=== PATIENT | male | born 1960 | race Asian ===

== ENCOUNTER 2019-06-03 00:59 | Emergency (ER) | payer OTHER ==
[~2019-06-03] VITALS: Ht 177.8 cm; Wt 81.6 kg
[2019-06-03] MEDS ORDERED: METOPROLOL SUCC25 MG ORAL (01:03)
[2019-06-03] MEDS ORDERED: ISONIAZID100 MG PO (01:03)
[2019-06-03] MEDS ORDERED: BACLOFEN10 MG ORAL (01:03)
--- NOTE | 2019-06-03 01:04 | Emergency Room Report ---
History of Present Illness General Chief Complaint: Abdominal Pain Source: Patient, EMS Present Illness HPI 58-year-old male possible history of hypertension presents with left lower abdominal pain started 3 hours prior to arrival, no nausea no vomiting, pain is described as sharp constant unknown aggravating or alleviating factors severity is moderate, no chest pain no shortness of breath no dysuria no diarrhea patient presents for evaluation Allergies: Coded Allergies: No Known Allergies (Unverified , 06/03/19) Patient History Past Medical History: see triage record Reviewed Nursing Documentation: PMH: Agreed; PSxH: Agreed Nursing Documentation-PMH Past Medical History: No History, Except For Hx Hypertension: Yes Review of Systems All Other Systems: negative except mentioned in HPI Physical Exam Vital Signs Date Time Temp Pulse Resp B/P (MAP) Pulse Ox O2 Delivery O2 Flow Rate FiO2 06/03/19 00:59 97.9 68 14 162/100 (120) 96 Room Air Sp02 EP Interpretation: reviewed, normal General Appearance: well appearing, no apparent distress, alert Head: normocephalic, atraumatic Eyes: bilateral eye PERRL, bilateral eye EOMI ENT: uvula midline, moist mucus membranes Neck: supple, thyroid normal, supple/symm/no masses Respiratory: lungs clear, no respiratory distress, no retraction, no accessory muscle use Cardiovascular #1: normal peripheral pulses, regular rate, rhythm, no edema, no gallop, no murmur Gastrointestinal: no guarding, tenderness - generalized tenderness Musculoskeletal: normal inspection Neurologic: alert, oriented x3 Psychiatric: mood/affect normal Skin: no rash, warm/dry Medical Decision Making Diagnostic Impression: Primary Impression: AAA (abdominal aortic aneurysm) Qualified Codes: I71.4 - Abdominal aortic aneurysm, without rupture Additional Impressions: Ureterolithiasis UTI (urinary tract infection) Qualified Codes: N30.00 - Acute cystitis without hematuria ER Course 58-year-old male presents with abdominal pain, concerning for appendicitis versus diverticulitis versus nephrolithiasis versus AAA Patient is a former smoker, patient is given morphine IV fluids, Labs unremarkable, CT scan shows a right ureteral stone for millimeters, patient instantly found to have a AAA 5 cm Spoke with radiologist Will transfer patient for possible vascular intervention given his increased risk of rupture Patient accepted by Dr. Jb Guaman 4:15AM Patient also found to have UTI. Will provide abx in setting of kidney stone. Dr[facility] [place] [facility] Laboratory Tests Test 06/03/19 01:00 06/03/19 04:00 White Blood Count 4.7 K/UL (4.8-10.8) L Red Blood Count 4.79 M/UL (4.70-6.10) Hemoglobin 14.0 G/DL (14.2-18.0) L Hematocrit 42.7 % (42.0-52.0) Mean Corpuscular Volume 89 FL (80-99) Mean Corpuscular Hemoglobin 29.3 PG (27.0-31.0) Mean Corpuscular Hemoglobin Concent 32.8 G/DL (32.0-36.0) Red Cell Distribution Width 12.9 % (11.6-14.8) Platelet Count 169 K/UL (150-450) Mean Platelet Volume 5.1 FL (6.5-10.1) L Neutrophils (%) (Auto) 48.8 % (45.0-75.0) Lymphocytes (%) (Auto) 38.3 % (20.0-45.0) Monocytes (%) (Auto) 9.4 % (1.0-10.0) Eosinophils (%) (Auto) 2.2 % (0.0-3.0) Basophils (%) (Auto) 1.3 % (0.0-2.0) Prothrombin Time 10.7 SEC (9.30-11.50) Prothrombin Time INR 1.0 (0.9-1.1) PTT 28 SEC (23-33) Sodium Level 146 MMOL/L (136-145) H Potassium Level 4.1 MMOL/L (3.5-5.1) Chloride Level 111 MMOL/L (98-107) H Carbon Dioxide Level 26 MMOL/L (21-32) Anion Gap 9 mmol/L (5-15) Blood Urea Nitrogen 15 mg/dL (7-18) Creatinine 1.0 MG/DL (0.55-1.30) Estimate Glomerular Filtration Rate > 60 mL/min (>60) Glucose Level 100 MG/DL (74-106) Calcium Level 8.9 MG/DL (8.5-10.1) Total Bilirubin 0.5 MG/DL (0.2-1.0) Aspartate Amino Transferase (AST) 15 U/L (15-37) Alanine Aminotransferase (ALT) 17 U/L (12-78) Alkaline Phosphatase 78 U/L (46-116) Troponin I 0.000 ng/mL (0.000-0.056) Total Protein 7.3 G/DL (6.4-8.2) Albumin 3.7 G/DL (3.4-5.0) Globulin 3.6 g/dL Albumin/Globulin Ratio 1.0 (1.0-2.7) Lipase 184 U/L (73-393) Urine Color Yellow Urine Appearance Slightly cloudy Urine pH 5 (4.5-8.0) Urine Specific [place] 1.020 (1.005-1.035) Urine Protein 2+ (NEGATIVE) H Urine Glucose (UA) Negative (NEGATIVE) Urine Ketones Negative (NEGATIVE) Urine Blood 5+ (NEGATIVE) H Urine Nitrite Negative (NEGATIVE) Urine Bilirubin Negative (NEGATIVE) Urine Urobilinogen 1 MG/DL (0.0-1.0) H Urine Leukocyte Esterase 3+ (NEGATIVE) H Urine RBC Tntc /HPF (0 - 0) H Urine WBC Tntc /HPF (0 - 0) H Urine Squamous Epithelial Cells None /LPF (NONE/OCC) Urine Bacteria Moderate /HPF (NONE) H EKG Diagnostic Results EKG Time: 01:14 EP Interpretation: NSR, rate 68, QTc 47, no acute ST elevations, normal axis Rhythm Strip Diag. Results Rhythm Strip Time: 03:09 EP Interpretation: yes Rate: 65 Rhythm: NSR, no PVC's, no ectopy Chest X-Ray Diagnostic Results Chest X-Ray Diagnostic Results : Chest X-Ray Ordered: Yes # of Views/Limited/Complete: 1 View Indication: Other - Abdominal pain EP Interpretation: Yes Interpretation: no consolidation, no effusion, no pneumothorax, no acute cardiopulmonary disease Impression: No acute disease Electronically Signed by: Cresencio Malin MD CT/MRI/US Diagnostic Results CT/MRI/US Diagnostic Results : Impression Preliminary Findings Only See Final Report For Complete Findings CT ABDOMEN & PELVIS With Contrast: Lower lungs: Mild cardiomegaly. Liver: Unremarkable. Gallbladder: Unremarkable. Spleen, pancreas, and adrenal glands: No acute findings. Kidneys: Left hydroureteronephrosis secondary to a 4 mm stone in the distal ureter. Right kidney is unremarkable. Bowel: No bowel obstruction. Mild hiatal hernia. Appendix: No convincing appendicitis. Bladder: Mild wall thickening, correlate with cystitis versus underdistention. Pelvic organs: Unremarkable. Vessels: 4.9 cm abdominal aortic aneurysm with 60% circumferential mural thrombus. Bones: No acute fracture. Radiologist: Vivi Chappell MD Study ready at 03:22 and initial results transmitted at 03:34 Last Vital Signs Date Time Temp Pulse Resp B/P (MAP) Pulse Ox O2 Delivery O2 Flow Rate FiO2 06/03/19 00:59 97.9 68 14 162/100 (120) 96 Room Air Disposition: XFER SHT-TRM HOSP - [facility] Condition: Serious Cresencio Malin MD Jun 03, 2019 01:04
[2019-06-03] MEDS ORDERED: Morphine Sulfate 4mg/ml Inj (IV USE ONLY) IVP ONE (01:15)
[2019-06-03] MEDS ORDERED: Ketorolac 30mg Inj IV ONE (01:15)
[2019-06-03] MEDS ORDERED: Isovue-300 100ml vial INJ PRN (01:15)
--- NOTE | 2019-06-03 01:15 | NUR ---
ED Nurse Note: Recieved pt from home, awake, alert and oriented x 4, here with c/o abd pain at 06/02, pt ahs hx of abd surgery and thinks is having complications, denies cp, sob, or any toher complaints, pt assisted to gowning and cardiac monitoring, spouse at bedside, carlos t 07/02, will resume care as ordered and continue to closely monitor.
[2019-06-03 01:27] LABS: BASOPHILS % (AUTO) 1.3 % (0.0-2.0); EOSINOPHILS % (AUTO) 2.2 % (0.0-3.0); HEMATOCRIT 42.7 % (42.0-52.0); LYMPHOCYTES % (AUTO) 38.3 % (20.0-45.0); MEAN CORPUSCULAR VOLUME 89 FL (80-99); MONOCYTES % (AUTO) 9.4 % (1.0-10.0); NEUTROPHILS % (AUTO) 48.8 % (45.0-75.0); PLATELET COUNT 169 K/UL (150-450); RED BLOOD COUNT 4.79 M/UL (4.70-6.10); RED CELL DISTRIBUTION WIDTH 12.9 % (11.6-14.8); WHITE BLOOD COUNT 4.7 K/UL (4.8-10.8)
[2019-06-03 01:38] LABS: ANION GAP 9 mmol/L (5-15); BLOOD UREA NITROGEN 15 mg/dL (7-18); CALCIUM 8.9 MG/DL (8.5-10.1); CARBON DIOXIDE 26 MMOL/L (21-32); CHLORIDE 111 MMOL/L (98-107); POTASSIUM 4.1 MMOL/L (3.5-5.1); SODIUM 146 MMOL/L (136-145)
[2019-06-03 01:43] LABS: ALANINE AMINOTRANSFERASE 17 U/L (12-78); ALBUMIN 3.7 G/DL (3.4-5.0); ALKALINE PHOSPHATASE 78 U/L (46-116); ASPARTATE AMINO TRANSFERASE 15 U/L (15-37); BILIRUBIN,TOTAL 0.5 MG/DL (0.2-1.0)
[2019-06-03 02:45] VITALS: BP 129/77
--- NOTE | 2019-06-03 03:30 | NUR ---
ED Nurse Note: Pt endorsed from Mattie, pt able to give uriner sample, sent to lab. Pt now resting in bed with eyes closed, no signs of distress. VSS. Pt denies pain at this time, will continue to monitor
--- NOTE | 2019-06-03 03:35 | Diagnostic Imaging Report ---
Clinical Indication: Right upper quadrant pain for 2 days Technique: No oral contrast utilized, per emergency room physician request IV administration nonionic contrast. Venous phase spiral acquisition obtained through the abdomen and pelvis. Multiplanar reconstructions were generated. Total dose length product 946.66 mGycm. CTDIvol(s) 16.82 mGy. Dose reduction achieved using automated exposure control Comparison: none Findings: There is a 5 x 4 mm calculus in the distal left ureter. There is mild ectasia of the left ureter, moderate left hydronephrosis, periureteral fat stranding, perinephric fat stranding as well as don perinephric fluid. There is a cyst within the left kidney which contains some calcification. There is also a right renal cyst. No right renal or ureteral calculi, hydronephrosis, or hydroureter demonstrated. The prostate is somewhat enlarged. The bladder demonstrates wall thickening. There is also some focal polypoid appearing protrusion into the bladder lumen posteriorly which measures approximately 12 mm in diameter. There is a fusiform infrarenal abdominal aortic aneurysm. This measures 5 cm transverse by 5.2 cm AP by 8 cm in length. It demonstrates considerable mural thrombus. There is no evidence of leakage or rupture. There is a long infrarenal neck of at least 5 cm. The appendix is normal. There is no evidence of colonic diverticulosis or diverticulitis. No small bowel distention. No free or loculated intraperitoneal gas or fluid. Distal esophagus, stomach, duodenum are unremarkable. The liver demonstrates multiple subcentimeter low-attenuation lesions which are too small to characterize. The gallbladder demonstrates a tiny calcification within the fundus. The bile ducts, pancreas, spleen are unremarkable. There is a 16 mm mass in the left adrenal. There is a 12 mm mass in the right adrenal. Both of these demonstrate indeterminate soft tissue attenuation. The included lung bases demonstrate a 3 mm nodule in the right middle lobe, image 10 series 7. There are posterior dependent atelectatic changes bilaterally. There may be some small air cysts in the left lower lobe. There is a 5 mm nodule in the posterior medial left lower lobe. Granulomatous calcified lymph nodes are seen in the left pulmonary hilum. Coronary artery calcifications are noted. The bones demonstrate degenerative spondylosis changes. Impression: Positive for 5 x 4 mm distal left ureteral calculus, resulting in ectasia of the left ureter, moderate left hydronephrosis, periureteral fat stranding and perinephric fluid 5 x 5.2 x 8 cm infrarenal abdominal aortic aneurysm. No evidence of leakage or rupture The above findings are in agreement with the [facility] preliminary report Apparent polypoid protrusion into the posterior bladder lumen. This may represent a bladder mass or could represent blood related to the above Bilateral small pulmonary nodules, as described. Recommend follow-up CT imaging in 6-12 months if there is significant smoking history or other risk factors for lung carcinoma Cholelithiasis Bilateral adrenal nodules. Recommend comparison with any prior imaging that may be available. Consider 12 month follow-up adrenal CT or chemical shift MRI for further evaluation The above findings were not described on the preliminary report, were reported to Dr. Rosenbaum in the emergency room at the time of interpretation. [facility] was also notified via their website Incidental findings: Left lower lobe air cyst Evidence of old granulomatous disease in the left pulmonary hilum Incidental finding bilateral renal cysts Prostatomegaly Subcentimeter low-attenuation liver lesions, too small to characterize, most likely benign simple cysts or bile hamartomas. No further follow-up necessary The CT scanner at [facility] is accredited by the [employer] and the scans are performed using protocols designed to limit radiation exposure to as low as reasonably achievable to attain images of sufficient resolution adequate for diagnostic evaluation.
--- NOTE | 2019-06-03 03:39 | NUR ---
Pts info: [phone]
[2019-06-03 04:09] LABS: APPEARANCE,URINE SLIGHTLY CLOUDY; BILIRUBIN, URINE NEGATIVE (NEGATIVE); GLUCOSE, URINE (UA) NEGATIVE (NEGATIVE); KETONES,URINE NEGATIVE (NEGATIVE); LEUKOCYTE ESTERASE ,URINE 3+ (NEGATIVE); NITRITE,URINE NEGATIVE (NEGATIVE); PH,URINE 5 (4.5-8.0); PROTEIN,URINE 2+ (NEGATIVE); UROBILINOGEN,URINE 1 MG/DL (0.0-1.0)
--- NOTE | 2019-06-03 04:30 | NUR ---
Ppatient has been accepted at [facility] waiting for a bed assignment
[2019-06-03 04:32] LABS: COLOR,URINE YELLOW
[2019-06-03] MEDS ORDERED: cefTRIAXone 1 GM in NS 55 ML IVPB ONE (05:00)
[2019-06-03 07:20] VITALS: BP 152/90
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
--- NOTE | 2019-06-03 07:23 | NUR ---
HAND-OFF: Report given to Arun.
[2019-06-03 09:00] VITALS: BP 146/85
--- NOTE | 2019-06-03 09:00 | NUR ---
ED Nurse Note: pt lying in bed comfortably. no pain at this time. able to use urinal.
--- NOTE | 2019-06-03 10:58 | NUR ---
ED Nurse Note: NOHEMY Braswell at [facility]
--- NOTE | 2019-06-03 11:00 | NUR ---
ED Nurse Note: family at the bed side. will ride with pt.
[2019-06-03 11:03] VITALS: BP 104/83
--- NOTE | 2019-06-03 11:04 | NUR ---
ED Nurse Note: transferred by [facility] unit # [id number] to [facility].
--- NOTE | 2019-06-03 11:18 | Emergency Room Report ---
Physical Exam Vital Signs Date Time Temp Pulse Resp B/P (MAP) Pulse Ox O2 Delivery O2 Flow Rate FiO2 06/03/19 00:59 97.9 68 14 162/100 (120) 96 Room Air Medical Decision Making Diagnostic Impression: Primary Impression: AAA (abdominal aortic aneurysm) Additional Impressions: Ureterolithiasis UTI (urinary tract infection) Renal cyst Lung nodule Cholelithiasis ER Course Alerted by radiologist of Additional findings on CT scan from last night including left lower lobe cyst versus nodule, granulomatous disease in the left pulmonary hilum, bilateral renal cysts and cholelithiasis. I discussed these findings with the patient and included an updated report in the patient's transfer paperwork to [facility]. He is instructed to follow-up for these as an outpatient and to discuss with his new team over at [facility]. Patient remained stable for transport. Last Vital Signs Date Time Temp Pulse Resp B/P (MAP) Pulse Ox O2 Delivery O2 Flow Rate FiO2 06/03/19 11:03 62 21 104/83 98 Room Air 06/03/19 07:20 97.9 [facility] Condition: Serious Referrals: NON PHYSICIAN (PCP) Keaton Rosenbaum MD Jun 03, 2019 11:18
--- NOTE | 2019-06-03 11:29 | Diagnostic Imaging Report ---
Indication: Shortness of breath Technique: One view of the chest Comparison: none Findings: Lungs and pleural spaces are clear. The heart is upper limits of normal in size. The aorta is tortuous and ectatic and calcified. Impression: No acute process
--- NOTE | 2019-06-03 18:45 | Cardiology Report ---
APPROVED REPORT EKG Measurement Heart [id number] Normal sinus rhythm Normal ECG
== END 2019-06-03 11:06 | disposition short-term general hospital (02) ==
LOC: EDBD 00:59 → EMR 01:20
DX: I71.4 Abdominal aortic aneurysm, without rupture (principal); N30.00 Acute cystitis without hematuria; N20.1 Calculus of ureter; I10 Essential (primary) hypertension; N28.1 Cyst of kidney, acquired; R91.1 Solitary pulmonary nodule; K80.20 Calculus of gallbladder without cholecystitis without obstruction
CPT/HCPCS: 36415; 71045; 74177; 80053; 81003; 83690; 84484; 85025; 85610; 85730; 86850; 86900; 86901; 87086; 87181; 93005; 96361; 96365; 96375; J0696; J1885; J2270; J2405; Q9967; S0028; Z7502; 99284

== ENCOUNTER 2019-12-04 15:16 | Inpatient (IN) | payer OTHER ==
[~2019-12-04] VITALS: Ht 172.7 cm; Wt 72.6 kg
[~2019-12-04 15:16] MED LIST: BACLOFEN10 MG ORAL; ISONIAZID100 MG PO; METOPROLOL SUCC25 MG ORAL
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
[2019-12-04 15:30] VITALS: BP 142/89
[2019-12-04] MEDS ORDERED: Omnipaque-300 100ml vial INJ PRN (15:30)
[2019-12-04] MEDS ORDERED: Morphine Sulfate 4mg/ml Inj (IV USE ONLY) IVP ONE ×2 (15:30→18:15)
--- NOTE | 2019-12-04 15:51 | NUR ---
ED Nurse Note: blood and urine sent to lab
[2019-12-04 16:09] LABS: APPEARANCE,URINE CLOUDY; BILIRUBIN, URINE NEGATIVE (NEGATIVE); COLOR,URINE PALE YELLOW; GLUCOSE, URINE (UA) NEGATIVE (NEGATIVE); KETONES,URINE NEGATIVE (NEGATIVE); LEUKOCYTE ESTERASE ,URINE 3+ (NEGATIVE); NITRITE,URINE POSITIVE (NEGATIVE); PH,URINE 6 (4.5-8.0); PROTEIN,URINE 3+ (NEGATIVE); UROBILINOGEN,URINE NORMAL MG/DL (0.0-1.0)
[2019-12-04 16:14] LABS: HEMATOCRIT 44.1 % (42.0-52.0); HEMOGLOBIN 14.4 G/DL (14.2-18.0); MEAN CORPUSCULAR VOLUME 89 FL (80-99); PLATELET COUNT 133 K/UL (150-450); RED BLOOD COUNT 4.96 M/UL (4.70-6.10); RED CELL DISTRIBUTION WIDTH 14.3 % (11.6-14.8); WHITE BLOOD COUNT 9.9 K/UL (4.8-10.8)
[2019-12-04 16:15] LABS: BASOPHILS % (AUTO) 0.5 % (0.0-2.0); EOSINOPHILS % (AUTO) 0.2 % (0.0-3.0); MONOCYTES % (AUTO) 3.2 % (1.0-10.0); NEUTROPHILS % (AUTO) 87.9 % (45.0-75.0)
[2019-12-04 16:16] LABS: ANION GAP 9 mmol/L (5-15); BLOOD UREA NITROGEN 21 mg/dL (7-18); CALCIUM 9.6 MG/DL (8.5-10.1); CARBON DIOXIDE 26 MMOL/L (21-32); CHLORIDE 106 MMOL/L (98-107); CREATININE 0.9 MG/DL (0.55-1.30); POTASSIUM 4.2 MMOL/L (3.5-5.1); SODIUM 141 MMOL/L (136-145)
[2019-12-04 16:18] LABS: INR 0.9 (0.9-1.1)
[2019-12-04 16:20] LABS: ALANINE AMINOTRANSFERASE 23 U/L (12-78); ALBUMIN 3.6 G/DL (3.4-5.0); ALBUMIN/GLOBULIN RATIO 0.9 (1.0-2.7); ALKALINE PHOSPHATASE 91 U/L (46-116); ASPARTATE AMINO TRANSFERASE 20 U/L (15-37); BILIRUBIN,TOTAL 0.4 MG/DL (0.2-1.0)
--- NOTE | 2019-12-04 16:23 | Diagnostic Imaging Report ---
Indication: Dyspnea Comparison: 06/03/2019 A single view chest radiograph was obtained. Findings: No definite infiltrate or pulmonary vascular congestion identified. The heart is normal in size. The aorta is mildly enlarged consistent with atherosclerotic vascular disease. The bones are osteopenic. There are thoracic vertebral enthesophytes at multiple levels. Impression: No acute disease
[2019-12-04] MEDS ORDERED: cefTRIAXone 1 GM in NS 55 ML IVPB ONE (16:45)
[2019-12-04] MEDS ORDERED: Sodium Chloride 2,200 ML IVLG ONE (16:45)
--- NOTE | 2019-12-04 17:11 | NUR ---
ED Nurse Note: Pt in radiology
--- NOTE | 2019-12-04 17:25 | NUR ---
ED Nurse Note: reflex lactic drawn and sent to lab
[2019-12-04] MEDS ORDERED: DOCUSATE SODIU100 MG ORAL (17:46)
[2019-12-04] MEDS ORDERED: LOSARTAN POTASS25 MG ORAL (17:46)
[2019-12-04] MEDS ORDERED: FLOMAX0.4 MG ORAL (17:46)
[2019-12-04] MEDS ORDERED: CYMBALTA30 MG ORAL (17:46)
[2019-12-04] MEDS ORDERED: METOPROLOL TART25 MG ORAL (17:46)
[2019-12-04 18:00] VITALS: BP 148/92
--- NOTE | 2019-12-04 18:08 | Diagnostic Imaging Report ---
EXAM: CT Abdomen and Pelvis With Intravenous Contrast CLINICAL HISTORY: ABD PAIN TECHNIQUE: Axial computed tomography images of the abdomen and pelvis with intravenous contrast. CTDI is 6.1 mGy and DLP is 355.3 mGy-cm. One or more of the following dose reduction techniques were used: automated exposure control, adjustment of the mA and/or kV according to patient size, use of iterative reconstruction technique. COMPARISON: CT abdomen/pelvis on 06/03/2019 FINDINGS: Lung bases: Mild dependent atelectasis bilaterally. Mediastinum: Small hiatal hernia. ABDOMEN: Liver: Unremarkable. No mass. Gallbladder and bile ducts: Unremarkable. No calcified stones. No ductal dilation. Pancreas: Unremarkable. No mass. No ductal dilation. Spleen: Unremarkable. No splenomegaly. Adrenals: Similar nonspecific bilateral adrenal nodules measuring 1.8 cm on the left and 1.5 cm on the right. Kidneys and ureters: Moderate to severe left hydronephrosis. Left ureteral stent in place. No obstructing stone identified. Right renal cyst. Nonspecific hypodense lesions in the left kidney, one of which with mild associated calcifications. Stomach and bowel: Unremarkable. No obstruction. No mucosal thickening. PELVIS: Appendix: Normal appendix. Bladder: Distended bladder. Mild nonspecific bladder wall thickening along the right aspect of the bladder. Reproductive: Prominent calcifications in the prostate which is enlarged. ABDOMEN and PELVIS: Intraperitoneal space: Unremarkable. No free air. No significant fluid collection. Bones/joints: Degenerative changes of the spine. No acute fracture. No dislocation. Soft tissues: Small fat-containing umbilical hernia. Vasculature: Infrarenal abdominal aortic aneurysm, measuring approximately 5.1 cm in diameter. No aortic dissection. Atherosclerotic changes of the vasculature. Lymph nodes: Unremarkable. No enlarged lymph nodes. IMPRESSION: 1. Similar nonspecific bilateral adrenal nodules measuring 1.8 cm on the left and 1.5 cm on the right. 2. Infrarenal abdominal aortic aneurysm, measuring approximately 5.1 cm in diameter. No aortic dissection. 3. Moderate to severe left hydronephrosis. Left ureteral stent in place. No obstructing stone identified. 4. Distended bladder. Mild nonspecific bladder wall thickening along the right aspect of the bladder.
--- NOTE | 2019-12-04 18:21 | NUR ---
ED Nurse Note: Pt having a lot of pain and complaining of not being able to void. Heart rate increased to 140 bpm. Bladder scan shows 111 ml. ED MD aware and assessed patient. Morphine ordered and given.
[2019-12-04] MEDS ORDERED: Vancomycin 1 GM in NS 275 ML IVPB ONE (18:30)
[2019-12-04] MEDS ORDERED: Gentamicin 120mg/100ml NS INJ 100 ML IVPB ONE (18:45)
--- NOTE | 2019-12-04 18:49 | NUR ---
ED Nurse Note: Dale inserted and pt feeling relief. HR now 125
--- NOTE | 2019-12-04 19:02 | NUR ---
HAND-OFF: Report given to NOHEMY Marks. Pt in stable condition; plan of care endorsed.
[2019-12-04 19:03] VITALS: BP 118/75
--- NOTE | 2019-12-04 19:03 | NUR ---
ED Nurse Note: Received report from Griselda SLATER. Pt alert and orienetd, verbally responsive. Not in any distress. Pt has FC 18F, patent and draining well. Will cont to monitor.
--- NOTE | 2019-12-04 21:03 | NUR ---
ED Nurse Note: Pt seen sleeping in bed. Not in any distress. VSS. Will cont to monitor.
--- NOTE | 2019-12-04 21:30 | NUR ---
ED Nurse Note: Report given to Dennys SLATER.
[2019-12-04 21:40] VITALS: BP 101/60
--- NOTE | 2019-12-04 21:40 | NUR ---
TRANSFER TO FLOOR: Patient transferred to SDU. Report given to Dennys SLATER. Pt alert and oriented, verbally responsive. Not in any distress. No SOB. Sinus rhythm. IV line on left and right AC 20g patent and intact. No skin issues. Med recon done. All belongings sent with the patient. Family member aware of the transfer.
--- NOTE | 2019-12-04 21:57 | Infectious Diseases Prog Note ---
Assessment/Plan Assessment/Plan Full consult dictated: A) 1) uti/pyelonephritis 2) sepsis, fevers 3) allergies - nkda 4) pmh noted P) 1) zosyn and vancomycin 2) check cultures, labs and chest x-ray 3) CT noted 4) thank you Subjective Allergies: Coded Allergies: No Known Allergies (Unverified , 06/03/19) Objective Vital Signs Last 24 Hour Vital Signs Date Time Temp Pulse Resp B/P (MAP) Pulse Ox O2 Delivery O2 Flow Rate FiO2 12/04/19 19:03 101.0 101 19 118/75 97 Room Air 12/04/19 18:59 101.0 12/04/19 18:00 101.0 140 20 148/92 99 Room Air 12/04/19 15:30 135 20 Room Air 12/04/19 15:30 102.6 135 20 142/89 99 Room Air 12/04/19 15:21 102.6 133 20 145/82 (103) 99 Room Air Height (Feet): 5 Height (Inches): 8.00 Weight (Pounds): 160 Laboratory Tests Test 12/04/19 15:40 12/04/19 17:25 White Blood Count 9.9 K/UL (4.8-10.8) Red Blood Count 4.96 M/UL (4.70-6.10) Hemoglobin 14.4 G/DL (14.2-18.0) Hematocrit 44.1 % (42.0-52.0) Mean Corpuscular Volume 89 FL (80-99) Mean Corpuscular Hemoglobin 29.0 PG (27.0-31.0) Mean Corpuscular Hemoglobin Concent 32.6 G/DL (32.0-36.0) Red Cell Distribution Width 14.3 % (11.6-14.8) Platelet Count 133 K/UL (150-450) L Mean Platelet Volume 5.6 FL (6.5-10.1) L Neutrophils (%) (Auto) 87.9 % (45.0-75.0) H Lymphocytes (%) (Auto) 8.0 % (20.0-45.0) L Monocytes (%) (Auto) 3.2 % (1.0-10.0) Eosinophils (%) (Auto) 0.2 % (0.0-3.0) Basophils (%) (Auto) 0.5 % (0.0-2.0) Prothrombin Time 9.8 SEC (9.30-11.50) Prothromb Time International Ratio 0.9 (0.9-1.1) Activated Partial Thromboplast Time 29 SEC (23-33) Urine Color Pale yellow Urine Appearance Cloudy Urine pH 6 (4.5-8.0) Urine Specific [place] 1.010 (1.005-1.035) Urine Protein 3+ (NEGATIVE) H Urine Glucose (UA) Negative (NEGATIVE) Urine Ketones Negative (NEGATIVE) Urine Blood 5+ (NEGATIVE) H Urine Nitrite Positive (NEGATIVE) H Urine Bilirubin Negative (NEGATIVE) Urine Urobilinogen Normal MG/DL (0.0-1.0) Urine Leukocyte Esterase 3+ (NEGATIVE) H Urine RBC Tntc /HPF (0 - 0) H Urine WBC 60-80 /HPF (0 - 0) H Urine Squamous Epithelial Cells Few /LPF (NONE/OCC) Urine Bacteria Many /HPF (NONE) H Sodium Level 141 MMOL/L (136-145) Potassium Level 4.2 MMOL/L (3.5-5.1) Chloride Level 106 MMOL/L (98-107) Carbon Dioxide Level 26 MMOL/L (21-32) Anion Gap 9 mmol/L (5-15) Blood Urea Nitrogen 21 mg/dL (7-18) H Creatinine 0.9 MG/DL (0.55-1.30) Estimat Glomerular Filtration Rate > 60 mL/min (>60) Glucose Level 128 MG/DL (74-106) H Lactic Acid Level 2.30 mmol/L (0.4-2.0) H 1.10 mmol/L (0.66-2.22) Calcium Level 9.6 MG/DL (8.5-10.1) Magnesium Level 1.9 MG/DL (1.8-2.4) Total Bilirubin 0.4 MG/DL (0.2-1.0) Aspartate Amino Transf (AST/SGOT) 20 U/L (15-37) Alanine Aminotransferase (ALT/SGPT) 23 U/L (12-78) Alkaline Phosphatase 91 U/L (46-116) Total Protein 7.5 G/DL (6.4-8.2) Albumin 3.6 G/DL (3.4-5.0) Globulin 3.9 g/dL Albumin/Globulin Ratio 0.9 (1.0-2.7) L Lipase 302 U/L (73-393) Current Medications Medications (Trade) Dose Ordered Sig/Aiden Route PRN Reason Start Time Stop Time Status Last Admin Dose Admin Barium Sulfate (Readi-Cat 2) 450 ml NOW PRN ORAL Radiology Procedure 12/04/19 15:30 12/06/19 15:18 Iohexol (OMNIPAQUE-300 100ml) 100 ml NOW PRN INJ Radiology Procedure 12/04/19 15:30 12/06/19 15:18 Sodium Chloride 1,000 ml @ 300 mls/hr Q3H20M IV 12/04/19 15:30 01/03/20 15:29 12/04/19 18:29 Babatunde Kyle MD Dec 04, 2019 21:57
--- NOTE | 2019-12-04 22:00 | NUR ---
NURSE NOTES: Received report from Lorraine SLATER, pt. brought up from ER, pt. in bed awake, A/O x's 4- speaks Czech/ Mongolian. assistant food service director placed, VS done- full body assessment done- abdominal area appears to be distended- skin dry/ intact. pt. appears to be sating well on room air at 96%- no distress noted, pt. denies pain. Call light within easy reach, bed alarm on, side rails up x's3 and safety brakes engaged. Pt. states he does not ambulate but can turn side to side in bed. pt. oriented to room and pt. teaching done. pt. has Dale intact and patent- draining clear yellow urine. pt. has Right and Left AC both IVs intact and patent, safety measures continued, will continue with plan of care.
[2019-12-04] MEDS ORDERED: Hydromorphone 0.5mg/0.5ml inj IVP PRN (22:30)
[2019-12-04] MEDS ORDERED: Docusate 100mg cap ORAL PRN (22:30)
--- NOTE | 2019-12-04 22:30 | NUR ---
NURSE NOTES: DR. Munguia- calling to give admission orders- orders read back to doctor- per doctor from home reconcile medications to continue all medications except Losartan potassium and Metoprolol Tartrate- will carry out orders.
--- NOTE | 2019-12-04 23:30 | Consultation ---
DATE OF CONSULTATION: 12/04/2019 INFECTIOUS DISEASES CONSULTATION CONSULTING PHYSICIAN: Babatunde Kyle M.D. ATTENDING PHYSICIAN: Rolf Mulligan M.D. REFERRING PHYSICIAN: Rolf Mulligan M.D. REASON FOR CONSULTATION: UTI/pyelonephritis, sepsis, fevers. CHIEF COMPLAINT: The patient's chief complaint coming into the hospital is sepsis. HISTORY OF PRESENT ILLNESS: This is a 59-year-old male, who comes in to [facility] with abdominal pain mostly in the left lower abdomen. The patient does not speak Albanian, however, did get translation with one of the nursing staff. The patient did have left lower abdominal pain and back pain. At [facility], placed the patient on a CT scan of the abdomen and pelvis, which showed the following. It showed bilateral adrenal nodules, infrarenal abdominal aortic aneurysm without dissection and severe left hydronephrosis with left ureteral stent in place. The patient's workup shows that he has urinalysis with 60 to 80 white blood cells and many bacteria and positive nitrite. The patient likely has urinary UTI/pyelonephritis, sepsis, and fevers. Infectious Disease consultation is requested. The patient placed empirically on vancomycin and Zosyn. He was given antibiotics in the ER that were reviewed. REVIEW OF SYSTEMS: As discussed, she has abdominal pain and back pain, question of CVA pain. He currently has a Dale. He has fevers.CARDIAC: No chest pain. GASTROINTESTINAL: No nausea, vomiting, or diarrhea. GENITOURINARY: Dale. PULMONARY: No shortness of breath. SKIN: No rash. EXTREMITIES: No pain. NEUROLOGIC: No seizures. He is alert and responsive. PAST MEDICAL HISTORY: The patient's past medical history obtained from the records. The patient has a past medical history of the following. The patient has a past medical history of C-spine fusion and also ureteral stent. No mention of diabetes or hypertension. Besides ureteral stent and C-spine fusion, the patient also could have history of hypertension because he is on metoprolol and losartan, so most likely he has a history of hypertension also in the past medical history. ALLERGIES: No known drug allergies. SOCIAL HISTORY: Negative for smoking, alcohol, or drug abuse. FAMILY HISTORY: Noncontributory. MEDICATIONS: Upon reviewing the MAR, he got the following medications, vanco, Zosyn, IV fluids, Zofran, Levaquin, Rocephin, morphine, acetaminophen, gentamicin. Currently, antibiotics of Vanco and Zosyn. Outside medications noted and reconciliated. He is on losartan, metoprolol, , duloxetine, and docusate. PHYSICAL EXAMINATION: VITAL SIGNS: Temperature maximum 102.6, pulse rate is 101, respiratory rate 19, blood pressure 118/75, saturation 97%. GENERAL: Alert and responsive, in no acute distress. HEAD AND NECK: Oral exam, no thrush. Eye exam, no icterus. Normocephalic. Neck is supple. No JVD. HEART: Regular. No gallop or murmur. Tachycardic. ABDOMEN: Soft. Positive bowel sounds. Some left lower quadrant tenderness. LUNGS: Clear bilaterally. No rhonchi or rales. SKIN: No rash. MUSCULOSKELETAL: No effusion. Legs without cellulitis. PERIPHERAL VASCULAR: No cyanosis. GENITOURINARY: He has a Dale. Urine is cloudy. LINES: Line sites without phlebitis. NEUROLOGIC: Generalized weakness, responsive. Nonfocal. LABORATORY AND DIAGNOSTIC DATA: Laboratory data as follows. Creatinine 0.9. White count 9.9, hemoglobin 14.4. Creatinine 0.9. UA had 3+ leukocyte esterase, 60 to 80 white blood cells, too many to count wbc', many bacteria, positive nitrite. Cultures are pending. Chest x-ray showed no acute disease. CT scan of the abdomen and pelvis showed hydronephrosis. Report was noted and reviewed. ASSESSMENT AND PLAN: 1. The patient has UTI/pyelonephritis, possible CVA tenderness. He has abdominal pain. The patient has fevers and tachycardia, has SIRS criteria, and likely has UTI/pyelonephritis with sepsis. Continue Zosyn and vancomycin to treat UTI/pyelonephritis and sepsis. Check cultures, labs, and follow up chest x-ray. CT scan of the abdomen and pelvis noted. 2. Likely hypertension. Blood pressure treatment per primary care team. 3. C-spine fusion surgery. 4. History of ureteral stent. 5. The patient also on and Cymbalta. 6. No known drug allergies. 7. Social history is negative. 8. Family history is noncontributory. 9. MAR is noted. 10. Case was discussed with RN. 11. Continue treatment per primary consultants. Babatunde Kyle M.D. DR: MIN JOB#: [id number] CC:
[2019-12-04 23:44] VITALS: BP 101/76
[2019-12-05] VITALS (7 sets, daily range): BP systolic 99–137; BP diastolic 61–93
--- NOTE | 2019-12-05 01:15 | Consultation ---
DATE OF CONSULTATION: 12/04/2019 NOTE: CANCELED DICTATION Babatunde Kyle M.D. DR: ANIKA JOB#: [id number] CC:
[2019-12-05] MEDS: Vancomycin 1.25gm/NS Premix 275 ML IVPB SCH ×2 (05:01→18:34)
[2019-12-05 06:48] LABS: BASOPHILS % (AUTO) 0.2 % (0.0-2.0); EOSINOPHILS % (AUTO) 0.3 % (0.0-3.0); HEMATOCRIT 37.3 % (42.0-52.0); HEMOGLOBIN 12.6 G/DL (14.2-18.0); LYMPHOCYTES % (AUTO) 10.1 % (20.0-45.0); MEAN CORPUSCULAR VOLUME 88 FL (80-99); MONOCYTES % (AUTO) 6.4 % (1.0-10.0); PLATELET COUNT 112 K/UL (150-450); RED BLOOD COUNT 4.24 M/UL (4.70-6.10); RED CELL DISTRIBUTION WIDTH 13.3 % (11.6-14.8); WHITE BLOOD COUNT 10.9 K/UL (4.8-10.8)
[2019-12-05 06:59] LABS: ALANINE AMINOTRANSFERASE 18 U/L (12-78); ALBUMIN 2.7 G/DL (3.4-5.0); ALBUMIN/GLOBULIN RATIO 0.8 (1.0-2.7); ALKALINE PHOSPHATASE 72 U/L (46-116); ANION GAP 10 mmol/L (5-15); ASPARTATE AMINO TRANSFERASE 14 U/L (15-37); BILIRUBIN,TOTAL 0.6 MG/DL (0.2-1.0); BLOOD UREA NITROGEN 15 mg/dL (7-18); CARBON DIOXIDE 24 MMOL/L (21-32); CHLORIDE 111 MMOL/L (98-107); CREATININE 1.1 MG/DL (0.55-1.30); POTASSIUM 3.9 MMOL/L (3.5-5.1); SODIUM 145 MMOL/L (136-145)
--- NOTE | 2019-12-05 07:08 | NUR ---
HAND-OFF: Report given to Jose Thompson, RN, pt. remains stable and no signs of distress noted- aware to f/u on any am abnormal labs.
--- NOTE | 2019-12-05 07:19 | NUR ---
NURSE NOTES: Received report from NOHEMY Noyola. Patient is resting in bed, in stable condition. No s/sx of SOB, breathing is even and unlabored, room air. Denies any presence of pain or discomfort at this time. Bed is in lowest position, brakes engaged. Call light is kept within easy reach. Will continue to monitor patient.
--- NOTE | 2019-12-05 07:30 | NUR ---
NURSE NOTES: Per night nurse report. Dr. Munguia aware of abdominal CT results, no new orders given at this time. Noted. Will continue to monitor patient.
[2019-12-05] MEDS ORDERED: DULoxetine 30mg cap ORAL SCH (09:00)
--- NOTE | 2019-12-05 09:00 | Diagnostic Imaging Report ---
EXAM: US Duplex Bilateral Lower Extremity Veins CLINICAL HISTORY: DVT TECHNIQUE: Real-time duplex ultrasound scan of the bilateral lower extremity veins integrating B-mode two-dimensional vascular structure, Doppler spectral analysis, color flow Doppler imaging and compression. COMPARISON: No relevant prior studies available. FINDINGS: Right deep veins: Unremarkable. No DVT in the right common femoral, femoral, proximal deep femoral or popliteal veins. The veins demonstrate normal color flow, are normally compressible, with normal phasic flow and/or augmentation response. Right superficial veins: Unremarkable. Left deep veins: Unremarkable. No DVT in the left common femoral, femoral, proximal deep femoral or popliteal veins. The veins demonstrate normal color flow, are normally compressible, with normal phasic flow and/or augmentation response. Left superficial veins: Unremarkable. Soft tissues: No popliteal cyst. IMPRESSION: Unremarkable bilateral lower extremity duplex venous ultrasound.
--- NOTE | 2019-12-05 09:29 | NUR ---
RADIOLOGY DEPT., LATE ENTRY. CHEST X-RAY COMPLETED ON ADMIT AT 16:30HRS, 12/04/19.-PRADHA
--- NOTE | 2019-12-05 12:46 | NUR ---
NURSE NOTES: Dr. Gay at nurse station. Made aware of low grade fever 100.2F Orally no PRN Tylenol, Dr. Gay acknowledged ordered Tylenol 650 mg PO Q4HR PRN for fever. Dr. Gay made aware of of abdominal ultra sound and impressions of aortic aneurysm measuring at 5.1 cm, Dr. Gay acknowledged no new orders given regarding this at this time. Dr. Gay ordered regular diet. Dr. Gya made aware of platelets going down to [address] Gay acknowledged and ordered to hold Heparin 5,000 SQ if platelets below 50,000. Orders entered, noted, and carried out. Will continue to monitor patient.
--- NOTE | 2019-12-05 14:13 | Consultation ---
History of Present Illness General Date patient seen: Dec 05, 2019 Reason for Hospitalization: Abdominal Pain Present Illness HPI This is a very pleasant 59-year-old male who presented to [facility] complaining of worsening left-sided abdominal pain. States worsening over the past few days but has been dealing with abdominal pain intermittently for some time now. He also feels warm to the touch for the last couple of days. He also feels dehydrated. There is no vomiting or nausea. Patient rates the pain 6/10 left lower quadrant nonradiating constant at this time. He moved his bowels recently. He denies any dysuria. Stool color was brown without blood. States he called 911 because he felt like he was having a fever at home and was very nervous and wanted medical attention. CT scan demonstrated as below. AAA noted. Abdominal pain noted. Surgery called to evaluate and assist with care. Patient seen, patient evaluated, chart reviewed Allergies: Coded Allergies: No Known Allergies (Unverified , 06/03/19) Medication History Scheduled Duloxetine Hcl* (Cymbalta*), 30 MG ORAL DAILY, (Reported) Losartan Potassium* (Losartan Potassium*), 25 MG ORAL DAILY, (Reported) Metoprolol Tartrate* (Metoprolol Tartrate*), 25 MG ORAL EVERY 12 HOURS, ( Reported) Tamsulosin HCl (Flomax), 0.4 MG ORAL DAILY, (Reported) Scheduled PRN Docusate Sodium* (Docusate Sodium*), 100 MG ORAL TWICE A DAY PRN for Constipation, (Reported) Discontinued Medications Baclofen* (Baclofen*), Unknown Dose ORAL THREE TIMES A DAY, (Reported) Discontinued Reason: Pt stopped taking med Isoniazid (Isoniazid), Unknown Dose PO, (Reported) Discontinued Reason: Pt stopped taking med Metoprolol Succinate* (Metoprolol Succinate*), Unknown Dose ORAL DAILY, ( Reported) Discontinued Reason: Pt stopped taking med Patient History History Provided By: Patient, Medical Record, PMD Healthcare decision maker Devyn Smith Resuscitation status Full Code Advanced Directive on File No Past Medical/Surgical History Past Medical/Surgical History: (1) Ureterolithiasis (2) Cholelithiasis (3) Renal cyst (4) Lung nodule (5) Urinary retention (6) Sepsis (7) AAA (abdominal aortic aneurysm) (8) UTI (urinary tract infection) (9) Abdominal pain Review of Systems Review of Symptoms General ROS: no weight loss or fever Psychological ROS: no depression or mood changes, no memory loss Ophthalmic ROS: no visual changes or eye irritation ENT ROS: no nasal congestion, hearing loss, dizziness Allergy and Immunology ROS: no allergic symptoms or urticaria Hematological and Lymphatic ROS: no swollen glands, unusual bleeding or bruising Endocrine ROS: no polyuria, polydipsia, weight changes, temperature intolerance Respiratory ROS: no cough, shortness of breath, or wheezing Cardiovascular ROS: no chest pain or dyspnea on exertion Gastrointestinal ROS: abdominal pain, no bright red blood in stool. Musculoskeletal ROS: no myalgias or arthralgias Neurological ROS: no TIA or stroke symptoms Dermatological ROS: no new or changing skin lesions, rashes or pruritis Physical Exam Physical Exam General appearance: alert, cooperative, no distress, appears stated age Head: Normocephalic, without obvious abnormality, atraumatic Eyes: conjunctivae/corneas clear. PERRL, EOM's intact. Fundi benign Throat: Lips, mucosa, and tongue normal. Teeth and gums normal Neck: supple, symmetrical, trachea midline, no adenopathy, thyroid: not enlarged, symmetric, no tenderness/mass/nodules, no carotid bruit and no JVD Lungs: clear to auscultation bilaterally Heart: regular rate and rhythm, S1, S2 normal, no murmur, click, rub or gallop Abdomen: soft, mild discomfort and tenderness in the left lower quadrant tender. Bowel sounds normal. No masses, no organomegaly Extremities: extremities normal, atraumatic, no cyanosis or edema Pulses: 2+ and symmetric Skin: Skin color, texture, turgor normal. No rashes or lesions Neurologic: Grossly normal Last 24 Hour Vital Signs Date Time Temp Pulse Resp B/P (MAP) Pulse Ox O2 Delivery O2 Flow Rate FiO2 12/05/19 13:32 99.0 12/05/19 12:00 100.0 84 18 107/70 (82) 98 12/05/19 12:00 Room Air 12/05/19 11:25 75 12/05/19 08:00 86 12/05/19 08:00 Room Air 12/05/19 08:00 98.1 87 18 100/67 (78) 96 12/05/19 04:03 98.0 12/05/19 04:00 Room Air 12/05/19 04:00 97.9 99 18 137/93 (108) 97 12/05/19 04:00 94 12/05/19 00:00 Room Air 12/05/19 00:00 98.0 89 18 114/68 (83) 97 12/04/19 23:49 Room Air 12/04/19 23:44 97.9 103 18 101/76 (84) 96 12/04/19 23:20 95 12/04/19 22:04 Room Air 12/04/19 21:59 98 12/04/19 21:40 99.1 95 20 101/60 96 Room Air 12/04/19 21:40 99.1 95 20 101/60 96 Room Air 12/04/19 19:03 101.0 101 19 118/75 97 Room Air 12/04/19 18:59 101.0 12/04/19 18:00 101.0 140 20 148/92 99 Room Air 12/04/19 15:30 135 20 Room Air 12/04/19 15:30 102.6 135 20 142/89 99 Room Air 12/04/19 15:21 102.6 133 20 145/82 (103) 99 Room Air Intake and Output 12/04/19 12/05/19 19:00 07:00 Intake Total 8055 ml 2388 ml Output Total 1400 ml 1800 ml Balance 6655 ml 588 ml Intake Oral 0 ml IV Total 8055 ml 2388 ml Output Urine Total 1400 ml 1800 ml Laboratory Tests Test 12/04/19 15:40 12/04/19 17:25 12/05/19 03:26 White Blood Count 9.9 K/UL (4.8-10.8) 10.9 K/UL (4.8-10.8) H Red Blood Count 4.96 M/UL (4.70-6.10) 4.24 M/UL (4.70-6.10) L Hemoglobin 14.4 G/DL (14.2-18.0) 12.6 G/DL (14.2-18.0) L Hematocrit 44.1 % (42.0-52.0) 37.3 % (42.0-52.0) L Mean Corpuscular Volume 89 FL (80-99) 88 FL (80-99) Mean Corpuscular Hemoglobin 29.0 PG (27.0-31.0) 29.8 PG (27.0-31.0) Mean Corpuscular Hemoglobin Concent 32.6 G/DL (32.0-36.0) 33.9 G/DL (32.0-36.0) Red Cell Distribution Width 14.3 % (11.6-14.8) 13.3 % (11.6-14.8) Platelet Count 133 K/UL (150-450) L 112 K/UL (150-450) L Mean Platelet Volume 5.6 FL (6.5-10.1) L 4.8 FL (6.5-10.1) L Neutrophils (%) (Auto) 87.9 % (45.0-75.0) H 83.0 % (45.0-75.0) H Lymphocytes (%) (Auto) 8.0 % (20.0-45.0) L 10.1 % (20.0-45.0) L Monocytes (%) (Auto) 3.2 % (1.0-10.0) 6.4 % (1.0-10.0) Eosinophils (%) (Auto) 0.2 % (0.0-3.0) 0.3 % (0.0-3.0) Basophils (%) (Auto) 0.5 % (0.0-2.0) 0.2 % (0.0-2.0) Prothrombin Time 9.8 SEC (9.30-11.50) Prothromb Time International Ratio 0.9 (0.9-1.1) Activated Partial Thromboplast Time 29 SEC (23-33) Urine Color Pale yellow Urine Appearance Cloudy Urine pH 6 (4.5-8.0) Urine Specific [place] 1.010 (1.005-1.035) Urine Protein 3+ (NEGATIVE) H Urine Glucose (UA) Negative (NEGATIVE) Urine Ketones Negative (NEGATIVE) Urine Blood 5+ (NEGATIVE) H Urine Nitrite Positive (NEGATIVE) H Urine Bilirubin Negative (NEGATIVE) Urine Urobilinogen Normal MG/DL (0.0-1.0) Urine Leukocyte Esterase 3+ (NEGATIVE) H Urine RBC Tntc /HPF (0 - 0) H Urine WBC 60-80 /HPF (0 - 0) H Urine Squamous Epithelial Cells Few /LPF (NONE/OCC) Urine Bacteria Many /HPF (NONE) H Sodium Level 141 MMOL/L (136-145) 145 MMOL/L (136-145) Potassium Level 4.2 MMOL/L (3.5-5.1) 3.9 MMOL/L (3.5-5.1) Chloride Level 106 MMOL/L (98-107) 111 MMOL/L (98-107) H Carbon Dioxide Level 26 MMOL/L (21-32) 24 MMOL/L (21-32) Anion Gap 9 mmol/L (5-15) 10 mmol/L (5-15) Blood Urea Nitrogen 21 mg/dL (7-18) H 15 mg/dL (7-18) Creatinine 0.9 MG/DL (0.55-1.30) 1.1 MG/DL (0.55-1.30) Estimat Glomerular Filtration Rate > 60 mL/min (>60) > 60 mL/min (>60) Glucose Level 128 MG/DL (74-106) H 81 MG/DL (74-106) Lactic Acid Level 2.30 mmol/L (0.4-2.0) H 1.10 mmol/L (0.66-2.22) Calcium Level 9.6 MG/DL (8.5-10.1) 8.0 MG/DL (8.5-10.1) L Magnesium Level 1.9 MG/DL (1.8-2.4) Total Bilirubin 0.4 MG/DL (0.2-1.0) 0.6 MG/DL (0.2-1.0) Aspartate Amino Transf (AST/SGOT) 20 U/L (15-37) 14 U/L (15-37) L Alanine Aminotransferase (ALT/SGPT) 23 U/L (12-78) 18 U/L (12-78) Alkaline Phosphatase 91 U/L (46-116) 72 U/L (46-116) Total Protein 7.5 G/DL (6.4-8.2) 6.0 G/DL (6.4-8.2) L Albumin 3.6 G/DL (3.4-5.0) 2.7 G/DL (3.4-5.0) L Globulin 3.9 g/dL 3.3 g/dL Albumin/Globulin Ratio 0.9 (1.0-2.7) L 0.8 (1.0-2.7) L Lipase 302 U/L (73-393) Microbiology Date/Time Source Procedure Growth Status 12/04/19 15:40 Urine,Clean Catch Urine Culture - Preliminary Gram Negative Al Resulted Height (Feet): 5 Height (Inches): 8.00 Weight (Pounds): 160 Medications Current Medications Medications (Trade) Dose Ordered Sig/Aiden Route PRN Reason Start Time Stop Time Status Last Admin Dose Admin Acetaminophen (Tylenol) 650 mg Q4H PRN ORAL Mild Pain/Temp > 100.5 12/05/19 12:45 01/04/20 12:44 12/05/19 13:02 Docusate Sodium (Colace) 100 mg BID PRN ORAL Constipation 12/04/19 22:30 01/03/20 22:29 Duloxetine HCl (Cymbalta) 30 mg DAILY ORAL 12/05/19 09:00 01/04/20 08:59 12/05/19 08:35 Heparin Sodium (Porcine) (Heparin 5000 units/ml) 5,000 units EVERY 12 HOURS SUBQ 12/05/19 21:00 01/19/20 20:59 Hydromorphone HCl (Dilaudid) 0.4 mg Q6HR PRN IVP Severe Pain (Pain Scale 7-10) 12/04/19 22:30 12/11/19 22:29 12/05/19 03:33 Ondansetron HCl (Zofran) 4 mg Q8HR PRN IVP Nausea & Vomiting 12/04/19 22:30 01/03/20 22:29 Piperacillin Sod/ Tazobactam Sod 3.375 gm/Dextrose 100 ml @ 25 mls/hr EVERY 8 HOURS IVPB 12/04/19 22:00 12/09/19 21:59 12/05/19 13:36 Sodium Chloride 1,000 ml @ 100 mls/hr Q10H IV 12/04/19 22:30 12/05/19 22:29 12/05/19 08:36 Tamsulosin HCl (Flomax) 0.4 mg BEDTIME ORAL 12/05/19 21:00 01/04/20 20:59 Vancomycin HCl (Vanco rx to dose) 1 ea DAILY PRN MISC Per rx protocol 12/04/19 22:00 01/03/20 21:59 Vancomycin/Sodium Chloride 275 ml @ 184 mls/hr Q12H IVPB 12/05/19 06:00 12/10/19 05:59 12/05/19 05:01 Assessment/Plan Problem List: (1) AAA (abdominal aortic aneurysm) Assessment & Plan: ABDOMEN: Liver: Unremarkable. No mass. Gallbladder and bile ducts: Unremarkable. No calcified stones. No ductal dilation. Pancreas: Unremarkable. No mass. No ductal dilation. Spleen: Unremarkable. No splenomegaly. Adrenals: Similar nonspecific bilateral adrenal nodules measuring 1.8 cm on the left and 1.5 cm on the right. Kidneys and ureters: Moderate to severe left hydronephrosis. Left ureteral stent in place. No obstructing stone identified. Right renal cyst. Nonspecific hypodense lesions in the left kidney, one of which with mild associated calcifications. Stomach and bowel: Unremarkable. No obstruction. No mucosal thickening. PELVIS: Appendix: Normal appendix. Bladder: Distended bladder. Mild nonspecific bladder wall thickening along the right aspect of the bladder. Reproductive: Prominent calcifications in the prostate which is enlarged. ABDOMEN and PELVIS: Intraperitoneal space: Unremarkable. No free air. No significant fluid collection. Bones/joints: Degenerative changes of the spine. No acute fracture. No dislocation. Soft tissues: Small fat-containing umbilical hernia. Vasculature: Infrarenal abdominal aortic aneurysm, measuring approximately 5.1 cm in diameter. No aortic dissection. Atherosclerotic changes of the vasculature. Lymph nodes: Unremarkable. No enlarged lymph nodes. IMPRESSION: 1. Similar nonspecific bilateral adrenal nodules measuring 1.8 cm on the left and 1.5 cm on the right. 2. Infrarenal abdominal aortic aneurysm, measuring approximately 5.1 cm in diameter. No aortic dissection. 3. Moderate to severe left hydronephrosis. Left ureteral stent in place. No obstructing stone identified. 4. Distended bladder. Mild nonspecific bladder wall thickening along the right aspect of the bladder. ICD Codes: I71.4 - Abdominal aortic aneurysm, without rupture SNOMED: 433501821 Qualifiers: Qualified Codes: I71.4 - Abdominal aortic aneurysm, without rupture (2) Abdominal pain Assessment & Plan: This is a 51-year-old male with abdominal pain left-sided. Febrile, leukocytosis, lactic acidosis. Dehydrated initially resuscitated. Patient identified to have left-sided hydronephrosis with historic stent placement. This is likely the etiology of the patient's pain discomfort and sepsis. Infectious process. Patient identified to have a 5.1 cm infrarenal uncomplicated AAA. This is unlikely a source or etiology of patient's current discomfort and patient has had it known for some time now. I do long discussion with the patient given the size location and CT appearance of the AAA. I recommend strongly that the patient follow-up with his primary care physician for evaluation by vascular/cardiothoracic surgery as an outpatient for elective consideration of repair. No acute surgical intervention for nonruptured non-dissected uncomplicated 5.1 cm infrarenal AAA as other etiology of pain described above. Continue antibiotics as per infectious disease. Trend labs. Resuscitation. We will follow the recommendations. Okay for diet. ICD Codes: R10.9 - Unspecified abdominal pain SNOMED: 18490747 Qualifiers: Qualified Codes: R10.32 - Left lower quadrant pain Clarence Conway Dec 05, 2019 14:13
--- NOTE | 2019-12-05 15:34 | NUR ---
NURSE NOTES: Isabella charge nurse informed this nurse that they spoke with Dr. Gay and informed them that Dr. Fam is urologist on case ant to continued NPO order for tonight. Noted. Will continue to monitor patient.
--- NOTE | 2019-12-05 17:16 | History and Physical ---
History of Present Illness General Date patient seen: Dec 05, 2019 Reason for Hospitalization: Hydronephrosis, sepsis Present Illness HPI 59 year old male with hx of BPH, depression, HTN, hx of left ureteral stent, known AAA, presenting with inability to urinate and left sided abdominal/flank pain that started acutely last night. Allergies: Coded Allergies: No Known Allergies (Unverified , 06/03/19) Medication History Scheduled Duloxetine Hcl* (Cymbalta*), 30 MG ORAL DAILY, (Reported) Losartan Potassium* (Losartan Potassium*), 25 MG ORAL DAILY, (Reported) Metoprolol Tartrate* (Metoprolol Tartrate*), 25 MG ORAL EVERY 12 HOURS, ( Reported) Tamsulosin HCl (Flomax), 0.4 MG ORAL DAILY, (Reported) Scheduled PRN Docusate Sodium* (Docusate Sodium*), 100 MG ORAL TWICE A DAY PRN for Constipation, (Reported) Discontinued Medications Baclofen* (Baclofen*), Unknown Dose ORAL THREE TIMES A DAY, (Reported) Discontinued Reason: Pt stopped taking med Isoniazid (Isoniazid), Unknown Dose PO, (Reported) Discontinued Reason: Pt stopped taking med Metoprolol Succinate* (Metoprolol Succinate*), Unknown Dose ORAL DAILY, ( Reported) Discontinued Reason: Pt stopped taking med Patient History Healthcare decision maker Devyn Smith Resuscitation status Full Code Advanced Directive on File No Review of Systems Constitutional: Denies: no symptoms, see HPI, chills, sweats, fever, malaise, weakness, other Eye: Denies: no symptoms, see HPI, eye pain, blurred vision, tearing, double vision, nose pain, nose congestion, acuity changes, discharge, other ENT: Denies: no symptoms, see HPI, ear pain, ear discharge, nose pain, nose congestion, throat pain, throat swelling, mouth pain, hearing loss, nasal discharge, other Respiratory: Denies: no symptoms, see HPI, cough, orthopnea, shortness of breath, stridor, wheezing, MALONEY, sputum, other Cardiovascular: Denies: no symptoms, see HPI, chest pain, edema, palpitations, syncope, PND, other Gastrointestinal: Reports: abdominal pain Genitourinary: Reports: retention Musculoskeletal: Denies: no symptoms, see HPI, back pain, gout, joint pain, joint swelling, muscle pain, muscle stiffness, other Skin: Denies: no symptoms, see HPI, rash, change in color, change in hair/nails , dryness, lesions, other Psychiatric: Denies: no symptoms, see HPI, prior hx, anxiety, depressed feelings, emotional problems, SI, HI, hallucinations, other Neurological: Denies: no symptoms, see HPI, headache, numbness, paresthesia, seizure, tingling, tremors, focal weakness, syncope, dizziness, other Endocrine: Denies: no symptoms, see HPI, excessive sweating, flushing, intolerance to temperature, increased thirst, increased urine, unexplained weight loss, other Hematologic/Lymphatic: Denies: no symptoms, see HPI, anemia, blood clots, easy bleeding, easy bruising, swollen glands, diathesis, other Physical Exam General Appearance: no apparent distress, alert HEENT: normocephalic, atraumatic Neck: supple Respiratory/Chest: lungs clear, normal breath sounds, no respiratory distress Cardiovascular/Chest: normal rate, regular rhythm Abdomen: soft, tender Genitourinary/Rectal: cook Neurologic: alert, oriented x 3 Last 24 Hour Vital Signs Date Time Temp Pulse Resp B/P (MAP) Pulse Ox O2 Delivery O2 Flow Rate FiO2 12/05/19 16:00 100.0 73 18 99/62 (74) 98 12/05/19 13:32 99.0 12/05/19 12:00 100.0 84 18 107/70 (82) 98 12/05/19 12:00 Room Air 12/05/19 11:25 75 12/05/19 08:00 86 12/05/19 08:00 Room Air 12/05/19 08:00 98.1 87 18 100/67 (78) 96 12/05/19 04:03 98.0 12/05/19 04:00 Room Air 12/05/19 04:00 97.9 99 18 137/93 (108) 97 12/05/19 04:00 94 12/05/19 00:00 Room Air 12/05/19 00:00 98.0 89 18 114/68 (83) 97 12/04/19 23:49 Room Air 12/04/19 23:44 97.9 103 18 101/76 (84) 96 12/04/19 23:20 95 12/04/19 22:04 Room Air 12/04/19 21:59 98 12/04/19 21:40 99.1 95 20 101/60 96 Room Air 12/04/19 21:40 99.1 95 20 101/60 96 Room Air 12/04/19 19:03 101.0 101 19 118/75 97 Room Air 12/04/19 18:59 101.0 12/04/19 18:00 101.0 140 20 148/92 99 Room Air Intake and Output 12/04/19 12/05/19 19:00 07:00 Intake Total 8055 ml 2388 ml Output Total 1400 ml 1800 ml Balance 6655 ml 588 ml Intake Oral 0 ml IV Total 8055 ml 2388 ml Output Urine Total 1400 ml 1800 ml Laboratory Tests Test 12/04/19 17:25 12/05/19 03:26 Lactic Acid Level 1.10 mmol/L (0.66-2.22) White Blood Count 10.9 K/UL (4.8-10.8) H Red Blood Count 4.24 M/UL (4.70-6.10) L Hemoglobin 12.6 G/DL (14.2-18.0) L Hematocrit 37.3 % (42.0-52.0) L Mean Corpuscular Volume 88 FL (80-99) Mean Corpuscular Hemoglobin 29.8 PG (27.0-31.0) Mean Corpuscular Hemoglobin Concent 33.9 G/DL (32.0-36.0) Red Cell Distribution Width 13.3 % (11.6-14.8) Platelet Count 112 K/UL (150-450) L Mean Platelet Volume 4.8 FL (6.5-10.1) L Neutrophils (%) (Auto) 83.0 % (45.0-75.0) H Lymphocytes (%) (Auto) 10.1 % (20.0-45.0) L Monocytes (%) (Auto) 6.4 % (1.0-10.0) Eosinophils (%) (Auto) 0.3 % (0.0-3.0) Basophils (%) (Auto) 0.2 % (0.0-2.0) Sodium Level 145 MMOL/L (136-145) Potassium Level 3.9 MMOL/L (3.5-5.1) Chloride Level 111 MMOL/L (98-107) H Carbon Dioxide Level 24 MMOL/L (21-32) Anion Gap 10 mmol/L (5-15) Blood Urea Nitrogen 15 mg/dL (7-18) Creatinine 1.1 MG/DL (0.55-1.30) Estimat Glomerular Filtration Rate > 60 mL/min (>60) Glucose Level 81 MG/DL (74-106) Calcium Level 8.0 MG/DL (8.5-10.1) L Total Bilirubin 0.6 MG/DL (0.2-1.0) Aspartate Amino Transf (AST/SGOT) 14 U/L (15-37) L Alanine Aminotransferase (ALT/SGPT) 18 U/L (12-78) Alkaline Phosphatase 72 U/L (46-116) Total Protein 6.0 G/DL (6.4-8.2) L Albumin 2.7 G/DL (3.4-5.0) L Globulin 3.3 g/dL Albumin/Globulin Ratio 0.8 (1.0-2.7) L Height (Feet): 5 Height (Inches): 8.00 Weight (Pounds): 160 Medications Current Medications Medications (Trade) Dose Ordered Sig/Aiden Route PRN Reason Start Time Stop Time Status Last Admin Dose Admin Acetaminophen (Tylenol) 650 mg Q4H PRN ORAL Mild Pain/Temp > 100.5 12/05/19 12:45 01/04/20 12:44 12/05/19 13:02 Docusate Sodium (Colace) 100 mg BID PRN ORAL Constipation 12/04/19 22:30 01/03/20 22:29 Duloxetine HCl (Cymbalta) 30 mg DAILY ORAL 12/05/19 09:00 01/04/20 08:59 12/05/19 08:35 Heparin Sodium (Porcine) (Heparin 5000 units/ml) 5,000 units EVERY 12 HOURS SUBQ 12/05/19 21:00 01/19/20 20:59 Hydromorphone HCl (Dilaudid) 0.4 mg Q6HR PRN IVP Severe Pain (Pain Scale 7-10) 12/04/19 22:30 12/11/19 22:29 12/05/19 03:33 Ondansetron HCl (Zofran) 4 mg Q8HR PRN IVP Nausea & Vomiting 12/04/19 22:30 01/03/20 22:29 Piperacillin Sod/ Tazobactam Sod 3.375 gm/Dextrose 100 ml @ 25 mls/hr EVERY 8 HOURS IVPB 12/04/19 22:00 12/09/19 21:59 12/05/19 13:36 Sodium Chloride 1,000 ml @ 100 mls/hr Q10H IV 12/04/19 22:30 12/05/19 22:29 12/05/19 08:36 Tamsulosin HCl (Flomax) 0.4 mg BEDTIME ORAL 12/05/19 21:00 01/04/20 20:59 Vancomycin HCl (Vanco rx to dose) 1 ea DAILY PRN MISC Per rx protocol 12/04/19 22:00 01/03/20 21:59 Vancomycin/Sodium Chloride 275 ml @ 184 mls/hr Q12H IVPB 12/05/19 06:00 12/10/19 05:59 12/05/19 05:01 Assessment/Plan Problem List: (1) Urinary retention ICD Codes: R33.9 - Retention of urine, unspecified SNOMED: 528500809 (2) Sepsis ICD Codes: A41.9 - Sepsis, unspecified organism SNOMED: 27396551 Qualifiers: Qualified Codes: A41.9 - Sepsis, unspecified organism (3) AAA (abdominal aortic aneurysm) ICD Codes: I71.4 - Abdominal aortic aneurysm, without rupture SNOMED: 544288907 Qualifiers: Qualified Codes: I71.4 - Abdominal aortic aneurysm, without rupture (4) UTI (urinary tract infection) ICD Codes: N39.0 - Urinary tract infection, site not specified SNOMED: 71047664 Qualifiers: Qualified Codes: N39.0 - Urinary tract infection, site not specified (5) Abdominal pain ICD Codes: R10.9 - Unspecified abdominal pain SNOMED: 67765139 Qualifiers: Qualified Codes: R10.32 - Left lower quadrant pain Status: stable, not improved Diagnosis [place] I: Mr. Darby is a 59 year old M with AAA, HTN, depression, BPH, left ureteral stent, presenting with sepsis, UTI and left hydronephrosis #Sepsis #Acute UTI #Presence of left ureteral stent #Left hydronephrosis #BPH -Urology contacted. Will see tmrw. -NPO after MN for possible procedure. -CT showing left sided hydro, no stone seen. -ID following. appreciate recs. -Continue abx, f/u cultures. -Cook in place -Pain control. -mIVF -Continue daily home flomax. #AAA 5.2 cm infrarenal. previously known. -surgery consulted. appreciate recs. -recommends outpatient f/u. nothing to do during this admission. #Depression -continue home duloxetine. #HTN -Holding home Losartan and MTP in setting of sepsis above. 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 -PT Extra 37 minutes spent on chart review, including medications, labs, imaging, physician documentation. Tiem of note doesn't reflect time of encounter. Angelica Gay M.D. Dec 05, 2019 17:16
--- NOTE | 2019-12-05 19:23 | NUR ---
HAND-OFF: Report given to NOHEMY Christie.
--- NOTE | 2019-12-05 19:30 | NUR ---
NURSE NOTES: Report received from NOHEMY Thompson. Observed pt lying in the bed. A/O x4. No acute distress noted. SR on equipment monitor phototypesetting. On room air with no SOB. Denies any pain at abdomen. NPO midnight will be done. IV on R AC 20G, running NS at 100cc/hr. L H 22G, TKO, asymptomatic. L AC 20G, SL, asymptomatic. Bed in the lowest position. Call light within reach. Will continue to monitor.
[2019-12-05] MEDS: Heparin 5000 units/ml inj SUBQ SCH (21:00)
[2019-12-05] MEDS ORDERED: Tamsulosin 0.4mg cap ORAL SCH (21:00)
[2019-12-05] MEDS ORDERED: Heparin 5000 units/ml inj SUBQ SCH (21:00)
[2019-12-06] VITALS: BP 120/76
--- NOTE | 2019-12-06 | NUR ---
NURSE NOTES: Pt c/o headache, prn med given. No other distress noted at this time. Pt awake, lying in the bed. Will continue to monitor.
[2019-12-06 04:00] VITALS: BP 117/76
[2019-12-06] MEDS: Vancomycin 1.25gm/NS Premix 275 ML IVPB SCH (06:17)
[2019-12-06 06:29] LABS: BASOPHILS % (AUTO) 0.5 % (0.0-2.0); HEMATOCRIT 34.5 % (42.0-52.0); HEMOGLOBIN 11.9 G/DL (14.2-18.0); LYMPHOCYTES % (AUTO) 19.7 % (20.0-45.0); MEAN CORPUSCULAR VOLUME 87 FL (80-99); MONOCYTES % (AUTO) 7.2 % (1.0-10.0); NEUTROPHILS % (AUTO) 70.6 % (45.0-75.0); PLATELET COUNT 103 K/UL (150-450); RED BLOOD COUNT 3.97 M/UL (4.70-6.10); RED CELL DISTRIBUTION WIDTH 13.1 % (11.6-14.8); WHITE BLOOD COUNT 7.7 K/UL (4.8-10.8)
[2019-12-06 07:04] LABS: ALANINE AMINOTRANSFERASE 16 U/L (12-78); ALBUMIN 2.5 G/DL (3.4-5.0); ALBUMIN/GLOBULIN RATIO 0.8 (1.0-2.7); ALKALINE PHOSPHATASE 64 U/L (46-116); AMYLASE 42 U/L (25-115); ANION GAP 8 mmol/L (5-15); ASPARTATE AMINO TRANSFERASE 15 U/L (15-37); BILIRUBIN,TOTAL 0.5 MG/DL (0.2-1.0); BLOOD UREA NITROGEN 11 mg/dL (7-18); CALCIUM 8.4 MG/DL (8.5-10.1); CARBON DIOXIDE 25 MMOL/L (21-32); CHLORIDE 111 MMOL/L (98-107); CREATININE 0.9 MG/DL (0.55-1.30); POTASSIUM 3.7 MMOL/L (3.5-5.1); SODIUM 144 MMOL/L (136-145)
--- NOTE | 2019-12-06 07:04 | NUR ---
HAND-OFF: Report given to Min, RN
--- NOTE | 2019-12-06 07:05 | NUR ---
NURSE NOTES: Received report from Avi RN. Pt in bed awake and orientedx4 and able to to make needs known. Denied any pain. Denied SOB on room air. IV site in LAC 20G SL and RAC 20G running with IV Zosyn patent and asymptomatic. Side railx3 up for safety. Dale cath intact and patent and noted yellow colored urine in drain bag. Call light within easy reach. Bed in lowest position and locked. Patent off the SCD, Will order SCD from central supply. Sinus rhythm reported from previous shift RN. Will continue to plan of care.
[2019-12-06 08:00] VITALS: BP 141/84
[2019-12-06] MEDS ORDERED: DULoxetine 30mg cap ORAL SCH (09:00)
[2019-12-06] MEDS: Heparin 5000 units/ml inj SUBQ SCH ×2 (09:00→21:00)
[2019-12-06] MEDS ORDERED: Tamsulosin 0.4mg cap ORAL SCH (09:00)
--- NOTE | 2019-12-06 09:32 | Diagnostic Imaging Report ---
EXAM: XR Chest, 1 View CLINICAL HISTORY: INFECT TECHNIQUE: Frontal view of the chest. COMPARISON: Chest x-ray 12/04/19 FINDINGS: Lungs: Unremarkable. The lungs appear clear. No focal consolidation. Pleural space: Unremarkable. The costophrenic angles are sharp. No visible pneumothorax. Heart: Unremarkable. No cardiomegaly. Mediastinum: Unremarkable. Bones/joints: Unremarkable. Vasculature: Prominent ascending aorta and aortic arch. This may be related to magnification from portable AP technique, however cannot exclude aneurysm. Atherosclerotic calcifications are noted within the aortic arch. Tubes, lines and devices: Telemetry leads overlie the thorax. IMPRESSION: Prominent ascending aorta and aortic arch. This may be related to magnification from portable AP technique, however cannot exclude aneurysm. If there is continued concern this can be further evaluated with CT of the thorax.
--- NOTE | 2019-12-06 09:34 | Diagnostic Imaging Report ---
EXAM: XR Abdomen, 2 Views CLINICAL HISTORY: F/U TECHNIQUE: Frontal view of the abdomen/pelvis with upright view of the abdomen. COMPARISON: CT abdomen and pelvis dated 12/04/19 FINDINGS: Intraperitoneal space: No evidence of intraperitoneal free air. Gastrointestinal tract: GI contrast seen within the colonic loops, which otherwise within normal limits in diameter. No abnormal distention of colonic or small bowel loops. No evidence of pneumatosis intestinalis. Organs: The renal shadows are otherwise obscured. Bones/joints: Mild degenerative changes throughout the visualized spine and hip joints. Tubes, lines and devices: Left-sided ureteral stent, with expected radiographic positioning. IMPRESSION: Nonobstructive bowel gas pattern. Left ureteral stent in place.
[2019-12-06 12:00] VITALS: BP_SYST 132; BP_SYST 138; BP_SYST 141; BP_DIAS 70; BP_DIAS 84; BP_DIAS 85
--- NOTE | 2019-12-06 12:44 | Surgery Progress Note ---
Surgery Progress Note Subjective Additional Comments Patient seen and examined bedside. No acute events. No nausea or fever chills. States he feels little better today. Labs improved. Pending urology evaluation. Objective Last 24 Hour Vital Signs Date Time Temp Pulse Resp B/P (MAP) Pulse Ox O2 Delivery O2 Flow Rate FiO2 12/06/19 12:00 Room Air 12/06/19 08:00 Room Air 12/06/19 08:00 98.0 63 18 141/84 (103) 99 12/06/19 08:00 66 12/06/19 04:00 Room Air 12/06/19 04:00 66 12/06/19 04:00 97.7 65 18 117/76 (90) 99 12/06/19 00:00 98.3 78 18 120/76 (91) 99 12/06/19 00:00 74 12/06/19 00:00 Room Air 12/05/19 20:00 90 12/05/19 20:00 98.2 78 18 116/61 (79) 99 12/05/19 20:00 Room Air 12/05/19 18:00 97.9 84 18 119/72 (88) 99 12/05/19 16:00 Room Air 12/05/19 16:00 75 12/05/19 16:00 100.0 73 18 99/62 (74) 98 12/05/19 13:32 99.0 I&O Intake and Output 12/05/19 12/06/19 19:00 07:00 Intake Total 0 ml Output Total 2400 ml 3000 ml Balance -2400 ml -3000 ml Intake Oral 0 ml Output Urine Total 2400 ml 3000 ml Cardiovascular: RSR Respiratory: clear Abdomen: soft, flat, non-tender, present bowel sounds Extremities: no edema, no tenderness Laboratory Tests Test 12/06/19 03:39 White Blood Count 7.7 K/UL (4.8-10.8) Red Blood Count 3.97 M/UL (4.70-6.10) L Hemoglobin 11.9 G/DL (14.2-18.0) L Hematocrit 34.5 % (42.0-52.0) L Mean Corpuscular Volume 87 FL (80-99) Mean Corpuscular Hemoglobin 30.0 PG (27.0-31.0) Mean Corpuscular Hemoglobin Concent 34.5 G/DL (32.0-36.0) Red Cell Distribution Width 13.1 % (11.6-14.8) Platelet Count 103 K/UL (150-450) L Mean Platelet Volume 5.5 FL (6.5-10.1) L Neutrophils (%) (Auto) 70.6 % (45.0-75.0) Lymphocytes (%) (Auto) 19.7 % (20.0-45.0) L Monocytes (%) (Auto) 7.2 % (1.0-10.0) Eosinophils (%) (Auto) 2.0 % (0.0-3.0) Basophils (%) (Auto) 0.5 % (0.0-2.0) Erythrocyte Sedimentation Rate 57 MM/HR (0-20) H Prothrombin Time 10.5 SEC (9.30-11.50) Prothromb Time International Ratio 1.0 (0.9-1.1) Activated Partial Thromboplast Time 35 SEC (23-33) H Sodium Level 144 MMOL/L (136-145) Potassium Level 3.7 MMOL/L (3.5-5.1) Chloride Level 111 MMOL/L (98-107) H Carbon Dioxide Level 25 MMOL/L (21-32) Anion Gap 8 mmol/L (5-15) Blood Urea Nitrogen 11 mg/dL (7-18) Creatinine 0.9 MG/DL (0.55-1.30) Estimat Glomerular Filtration Rate > 60 mL/min (>60) Glucose Level 93 MG/DL (74-106) Calcium Level 8.4 MG/DL (8.5-10.1) L Total Bilirubin 0.5 MG/DL (0.2-1.0) Aspartate Amino Transf (AST/SGOT) 15 U/L (15-37) Alanine Aminotransferase (ALT/SGPT) 16 U/L (12-78) Alkaline Phosphatase 64 U/L (46-116) C-Reactive Protein, Quantitative 12.5 mg/dL (0.00-0.90) H Total Protein 5.8 G/DL (6.4-8.2) L Albumin 2.5 G/DL (3.4-5.0) L Globulin 3.3 g/dL Albumin/Globulin Ratio 0.8 (1.0-2.7) L Amylase Level 42 U/L (25-115) Lipase 163 U/L (73-393) Plan Problems: (1) AAA (abdominal aortic aneurysm) Assessment & Plan: ABDOMEN: Liver: Unremarkable. No mass. Gallbladder and bile ducts: Unremarkable. No calcified stones. No ductal dilation. Pancreas: Unremarkable. No mass. No ductal dilation. Spleen: Unremarkable. No splenomegaly. Adrenals: Similar nonspecific bilateral adrenal nodules measuring 1.8 cm on the left and 1.5 cm on the right. Kidneys and ureters: Moderate to severe left hydronephrosis. Left ureteral stent in place. No obstructing stone identified. Right renal cyst. Nonspecific hypodense lesions in the left kidney, one of which with mild associated calcifications. Stomach and bowel: Unremarkable. No obstruction. No mucosal thickening. PELVIS: Appendix: Normal appendix. Bladder: Distended bladder. Mild nonspecific bladder wall thickening along the right aspect of the bladder. Reproductive: Prominent calcifications in the prostate which is enlarged. ABDOMEN and PELVIS: Intraperitoneal space: Unremarkable. No free air. No significant fluid collection. Bones/joints: Degenerative changes of the spine. No acute fracture. No dislocation. Soft tissues: Small fat-containing umbilical hernia. Vasculature: Infrarenal abdominal aortic aneurysm, measuring approximately 5.1 cm in diameter. No aortic dissection. Atherosclerotic changes of the vasculature. Lymph nodes: Unremarkable. No enlarged lymph nodes. IMPRESSION: 1. Similar nonspecific bilateral adrenal nodules measuring 1.8 cm on the left and 1.5 cm on the right. 2. Infrarenal abdominal aortic aneurysm, measuring approximately 5.1 cm in diameter. No aortic dissection. 3. Moderate to severe left hydronephrosis. Left ureteral stent in place. No obstructing stone identified. 4. Distended bladder. Mild nonspecific bladder wall thickening along the right aspect of the bladder. Had a long discussion with patient regards to this. He states that last year when he came here was transferred to [facility] for evaluation of his AAA at which time he was told to follow-up with his primary care physician. Patient followed up with his primary care physician and was seen at [facility] as an outpatient for evaluation by CT surgery at which time after discussing risk-benefit alternatives intervention with patient decision was made to hold on further intervention and monitor. I explained to patient the necessity of monitoring closely to ensure no growth and stable. He expressed understanding. Currently no acute issues from AAA and stable. (2) Abdominal pain Assessment & Plan: This is a 51-year-old male with abdominal pain left-sided. Febrile, leukocytosis, lactic acidosis. Dehydrated initially resuscitated. Patient identified to have left-sided hydronephrosis with historic stent placement. This is likely the etiology of the patient's pain discomfort and sepsis. Infectious process. Patient identified to have a 5.1 cm infrarenal uncomplicated AAA. This is unlikely a source or etiology of patient's current discomfort and patient has had it known for some time now. I do long discussion with the patient given the size location and CT appearance of the AAA. I recommend strongly that the patient follow-up with his primary care physician for evaluation by vascular/cardiothoracic surgery as an outpatient for elective consideration of repair. No acute surgical intervention for nonruptured non-dissected uncomplicated 5.1 cm infrarenal AAA as other etiology of pain described above. Continue antibiotics as per infectious disease. Trend labs. Resuscitation. We will follow the recommendations. Okay for diet. Pending urology evaluation for possible stent removal. Fever is improving Leukocytosis resolved Clarence Conway Dec 06, 2019 12:44
--- NOTE | 2019-12-06 15:40 | NUR ---
HAND-OFF: Report given to Renetta SLATER. Pt remains stable.
--- NOTE | 2019-12-06 15:45 | NUR ---
NURSE NOTES: received patient on room 414-1 transferred from Tele room 243/2. Patient came in bed, with all belongings, checked against belongings list. Patient is awake, alert, oriented, Telugu and Yakut speaking. On regular diet, skin is intact, has IV accesses on LAC and RAC. Dale catheter in place, anchored to thigh, drains yellow urine to gravity. No complaint of pain or discomfort. Will continue to monitor patient and follow up with the plan of care. Patient is high fall risk, with bed locked at the lowest position possible, call light within easy reach, siderails up x2, bed alarm activated.
[2019-12-06 16:00] VITALS: BP 139/88
[2019-12-06] MEDS ORDERED: Hydromorphone 0.5mg/0.5ml inj IVP PRN (16:00)
--- NOTE | 2019-12-06 16:19 | General Progress Note ---
Assessment/Plan Problem List: (1) Urinary retention ICD Codes: R33.9 - Retention of urine, unspecified SNOMED: 962078627 (2) Sepsis ICD Codes: A41.9 - Sepsis, unspecified organism SNOMED: 95556530 Qualifiers: Qualified Codes: A41.9 - Sepsis, unspecified organism (3) AAA (abdominal aortic aneurysm) ICD Codes: I71.4 - Abdominal aortic aneurysm, without rupture SNOMED: 677297772 Qualifiers: Qualified Codes: I71.4 - Abdominal aortic aneurysm, without rupture (4) UTI (urinary tract infection) ICD Codes: N39.0 - Urinary tract infection, site not specified SNOMED: 61588095 Qualifiers: Qualified Codes: N39.0 - Urinary tract infection, site not specified (5) Abdominal pain ICD Codes: R10.9 - Unspecified abdominal pain SNOMED: 14198409 Qualifiers: Qualified Codes: R10.32 - Left lower quadrant pain Status: stable, not improved Assessment/Plan: Mr. Darby is a 59 year old M with AAA, HTN, depression, BPH, left ureteral stent, presenting with sepsis, UTI and left hydronephrosis #Sepsis #Acute UTI #Presence of left ureteral stent #Left hydronephrosis #BPH -Urology following. Will see tonight -NPO after MN for likely stent removal. -CT showing left sided hydro, no stone seen. -ID following. appreciate recs. -Continue abx, f/u cultures. -Dale in place -Pain control. -mIVF -Continue daily home flomax. #AAA 5.2 cm infrarenal. previously known. -surgery consulted. appreciate recs. -recommends outpatient f/u. nothing to do during this admission. #Depression -continue home duloxetine. #HTN -Holding home Losartan and MTP in setting of sepsis above. 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 -PT Time spent: 36 mins, 50% on counseling and coordination of care. Subjective Date patient seen: Dec 06, 2019 Constitutional: Denies: no symptoms, chills, diaphoresis, fever, malaise, weakness, other HEENT: Denies: no symptoms, eye pain, blurred vision, tearing, double vision, ear pain, ear discharge, nose pain, nose congestion, throat pain, throat swelling, mouth pain, mouth swelling, other Cardiovascular: Denies: no symptoms, chest pain, edema, irregular heart rate, lightheadedness, palpitations, syncope, other Respiratory: Denies: no symptoms, cough, orthopnea, shortness of breath, SOB with excertion, SOB at rest, sputum, stridor, wheezing, other Gastrointestinal/Abdominal: Denies: no symptoms, abdomen distended, abdominal pain, black stools, tarry stools, blood in stool, constipated, diarrhea, difficulty swallowing, nausea, poor appetite, poor fluid intake, rectal bleeding , vomiting, other Genitourinary: Denies: no symptoms, burning, discharge, frequency, flank pain, hematuria, incontinence, pain, urgency, other Neurologic/Psychiatric: Denies: no symptoms, anxiety, depressed, emotional problems, headache, numbness, paresthesia, pre-existing deficit, seizure, tingling, tremors, weakness, other Endocrine: Denies: no symptoms, excessive sweating, flushing, intolerance to cold, intolerance to heat, increased hunger, increased thirst, increased urine, unexplained weight gain, unexplained weight loss, other Hematologic/Lymphatic: Denies: no symptoms, anemia, easy bleeding, easy bruising, other Allergies: Coded Allergies: No Known Allergies (Unverified , 06/03/19) Subjective at bedside. no longer having fever/chills. overall feeling better. Objective Last 24 Hour Vital Signs Date Time Temp Pulse Resp B/P (MAP) Pulse Ox O2 Delivery O2 Flow Rate FiO2 12/06/19 12:00 98.1 63 18 132/85 (101) 97 12/06/19 12:00 Room Air 12/06/19 08:00 Room Air 12/06/19 08:00 98.0 63 18 141/84 (103) 99 12/06/19 08:00 66 12/06/19 04:00 Room Air 12/06/19 04:00 66 12/06/19 04:00 97.7 65 18 117/76 (90) 99 12/06/19 00:00 98.3 78 18 120/76 (91) 99 12/06/19 00:00 74 12/06/19 00:00 Room Air 12/05/19 20:00 90 12/05/19 20:00 98.2 78 18 116/61 (79) 99 12/05/19 20:00 Room Air 12/05/19 18:00 97.9 84 18 119/72 (88) 99 Intake and Output 12/05/19 12/06/19 19:00 07:00 Intake Total 0 ml Output Total 2400 ml 3000 ml Balance -2400 ml -3000 ml Intake Oral 0 ml Output Urine Total 2400 ml 3000 ml Laboratory Tests 12/06/19 03:39: White Blood Count 7.7, Red Blood Count 3.97L, Hemoglobin 11.9L, Hematocrit 34.5L , Mean Corpuscular Volume 87, Mean Corpuscular Hemoglobin 30.0, Mean Corpuscular Hemoglobin Concent 34.5, Red Cell Distribution Width 13.1, Platelet Count 103L, Mean Platelet Volume 5.5L, Neutrophils (%) (Auto) 70.6, Lymphocytes (%) (Auto) 19.7L, Monocytes (%) (Auto) 7.2, Eosinophils (%) (Auto) 2.0, Basophils (%) (Auto) 0.5, Erythrocyte Sedimentation Rate 57H, Prothrombin Time 10.5, Prothromb Time International Ratio 1.0, Activated Partial Thromboplast Time 35H, Sodium Level 144, Potassium Level 3.7, Chloride Level 111H, Carbon Dioxide Level 25, Anion Gap 8, Blood Urea Nitrogen 11, Creatinine 0.9, Estimat Glomerular Filtration Rate > 60, Glucose Level 93, Calcium Level 8.4L, Total Bilirubin 0.5, Aspartate Amino Transf (AST/SGOT) 15, Alanine Aminotransferase ( ALT/SGPT) 16, Alkaline Phosphatase 64, C-Reactive Protein, Quantitative 12.5H, Total Protein 5.8L, Albumin 2.5L, Globulin 3.3, Albumin/Globulin Ratio 0.8L, Amylase Level 42, Lipase 163 Height (Feet): 5 Height (Inches): 8.00 Weight (Pounds): 160 General Appearance: no apparent distress, alert Neck: supple Cardiovascular: normal rate, regular rhythm Respiratory/Chest: lungs clear, normal breath sounds Abdomen: non tender, soft Neurologic: alert, oriented x 3 Angelica Gay M.D. Dec 06, 2019 16:19
--- NOTE | 2019-12-06 16:57 | NUR ---
PT note PT aaron completed, treatment initiated. Patient has generalized increased muscle tone and bilateral ankle clonus. He requires assist in functional mobility and gait with a FWW. He can benefit from PT services to increase his muscle strength, ROM and balance to improve his safety in mobility and gait. Addendum: 12/06/19 at 1658 by KELLY FOSTER PT Amended: Links added.
[2019-12-06] MEDS ORDERED: Vancomycin 1gm/D5W 275ml IVPB SCH ×2 (18:00)
[2019-12-06] MEDS ORDERED: Docusate 100mg cap ORAL PRN (18:00)
[2019-12-06] MEDS ORDERED: Vancomycin 1.25gm/NS Premix 275 ML IVPB SCH (18:00)
--- NOTE | 2019-12-06 19:35 | NUR ---
HAND-OFF: Report given to NOHEMY Martinez.
--- NOTE | 2019-12-06 19:40 | NUR ---
NURSE NOTES: Received patient awake, alert, verbal, resting in bed, comfortable, no complaints.
[2019-12-06 19:51] VITALS: BP 112/68
--- NOTE | 2019-12-06 20:02 | Infectious Diseases Prog Note ---
Assessment/Plan Assessment/Plan ASSESSMENT AND PLAN: 1. pseudomonas uti/pyelonephritis, sepsis, fevers - zosyn - day # 3 abx, discontinue vancomycin - clinically improved - can transition to oral ciprofloxacin x 1 week if patient remains stable by tomorrow - monitor labs 2. Likely hypertension. Blood pressure treatment per primary care team. 3. C-spine fusion surgery. 4. History of ureteral stent. 5. The patient is on cymbalta 6. No known drug allergies. 7. Social history is negative. 8. Family history is noncontributory. 9. MAR is noted. 10. Case was discussed with RN. 11. Continue treatment per primary consultants. Subjective Constitutional: Denies: fever HEENT: Denies: congestion Respiratory: Denies: shortness of breath Cardiovascular: Denies: chest pain Gastrointestinal/Abdominal: Denies: nausea, vomiting, diarrhea Genitourinary: Reports: other - + cook Neurologic: Denies: headache Psychiatric: Denies: depression Skin: Denies: rash Hematologic: Denies: bleeding Musculoskeletal: Denies: pain Allergies: Coded Allergies: No Known Allergies (Unverified , 06/03/19) Objective Vital Signs Last 24 Hour Vital Signs Date Time Temp Pulse Resp B/P (MAP) Pulse Ox O2 Delivery O2 Flow Rate FiO2 12/06/19 19:51 98.6 91 18 112/68 (83) 98 12/06/19 16:00 97.0 82 19 139/88 (105) 99 12/06/19 12:00 98.1 63 18 132/85 (101) 97 12/06/19 12:00 Room Air 12/06/19 08:00 Room Air 12/06/19 08:00 98.0 63 18 141/84 (103) 99 12/06/19 08:00 66 12/06/19 04:00 Room Air 12/06/19 04:00 66 12/06/19 04:00 97.7 65 18 117/76 (90) 99 12/06/19 00:00 98.3 78 18 120/76 (91) 99 12/06/19 00:00 74 12/06/19 00:00 Room Air 12/05/19 20:00 90 12/05/19 20:00 98.2 78 18 116/61 (79) 99 12/05/19 20:00 Room Air Height (Feet): 5 Height (Inches): 8.00 Weight (Pounds): 160 General Appearance: no acute distress HEENT: normocephalic, atraumatic, anicteric, mucous membranes moist Respiratory/Chest: lungs clear, normal breath sounds, no respiratory distress, no accessory muscle use Cardiovascular: normal rate, regular rhythm, no gallop/murmur, no JVD Abdomen: normal bowel sounds, soft, non tender, no organomegaly, non distended Genitourinary: other - + cook - urine clearer Extremities: no cyanosis Skin: no rash Neurologic/Psychiatric: finger waver II-XII grossly normal, alert, responsive Lymphatic: no neck adenopathy Musculoskeletal: no effusion Objective CT scan abdomen and pelvis: IMPRESSION: 1. Similar nonspecific bilateral adrenal nodules measuring 1.8 cm on the left and 1.5 cm on the right. 2. Infrarenal abdominal aortic aneurysm, measuring approximately 5.1 cm in diameter. No aortic dissection. 3. Moderate to severe left hydronephrosis. Left ureteral stent in place. No obstructing stone identified. 4. Distended bladder. Mild nonspecific bladder wall thickening along the right aspect of the bladder. Chest x-ray - 12/06/19 - IMPRESSION: Prominent ascending aorta and aortic arch. This may be related to magnification from portable AP technique, however cannot exclude aneurysm. If there is continued concern this can be further evaluated with CT of the thorax. Microbiology Date/Time Source Procedure Growth Status 12/04/19 15:40 Blood Not Otherwise Specified Blood Culture - Preliminary NO GROWTH AFTER 24 HOURS Resulted 12/04/19 15:25 Blood Not Otherwise Specified Blood Culture - Preliminary NO GROWTH AFTER 24 HOURS Resulted 12/04/19 15:40 Urine,Clean Catch Urine Culture - Final Pseudomonas Aeruginosa Complete Laboratory Tests Test 12/06/19 03:39 12/06/19 16:20 White Blood Count 7.7 K/UL (4.8-10.8) Red Blood Count 3.97 M/UL (4.70-6.10) L Hemoglobin 11.9 G/DL (14.2-18.0) L Hematocrit 34.5 % (42.0-52.0) L Mean Corpuscular Volume 87 FL (80-99) Mean Corpuscular Hemoglobin 30.0 PG (27.0-31.0) Mean Corpuscular Hemoglobin Concent 34.5 G/DL (32.0-36.0) Red Cell Distribution Width 13.1 % (11.6-14.8) Platelet Count 103 K/UL (150-450) L Mean Platelet Volume 5.5 FL (6.5-10.1) L Neutrophils (%) (Auto) 70.6 % (45.0-75.0) Lymphocytes (%) (Auto) 19.7 % (20.0-45.0) L Monocytes (%) (Auto) 7.2 % (1.0-10.0) Eosinophils (%) (Auto) 2.0 % (0.0-3.0) Basophils (%) (Auto) 0.5 % (0.0-2.0) Erythrocyte Sedimentation Rate 57 MM/HR (0-20) H Prothrombin Time 10.5 SEC (9.30-11.50) Prothromb Time International Ratio 1.0 (0.9-1.1) Activated Partial Thromboplast Time 35 SEC (23-33) H Sodium Level 144 MMOL/L (136-145) Potassium Level 3.7 MMOL/L (3.5-5.1) Chloride Level 111 MMOL/L (98-107) H Carbon Dioxide Level 25 MMOL/L (21-32) Anion Gap 8 mmol/L (5-15) Blood Urea Nitrogen 11 mg/dL (7-18) Creatinine 0.9 MG/DL (0.55-1.30) Estimat Glomerular Filtration Rate > 60 mL/min (>60) Glucose Level 93 MG/DL (74-106) Calcium Level 8.4 MG/DL (8.5-10.1) L Total Bilirubin 0.5 MG/DL (0.2-1.0) Aspartate Amino Transf (AST/SGOT) 15 U/L (15-37) Alanine Aminotransferase (ALT/SGPT) 16 U/L (12-78) Alkaline Phosphatase 64 U/L (46-116) C-Reactive Protein, Quantitative 12.5 mg/dL (0.00-0.90) H Total Protein 5.8 G/DL (6.4-8.2) L Albumin 2.5 G/DL (3.4-5.0) L Globulin 3.3 g/dL Albumin/Globulin Ratio 0.8 (1.0-2.7) L Amylase Level 42 U/L (25-115) Lipase 163 U/L (73-393) Vancomycin Level Trough 13.7 ug/mL (5.0-12.0) H Current Medications Medications (Trade) Dose Ordered Sig/Aiden Route PRN Reason Start Time Stop Time Status Last Admin Dose Admin Acetaminophen (Tylenol) 650 mg Q4H PRN ORAL Mild Pain/Temp > 100.5 12/06/19 16:00 01/04/20 15:59 Docusate Sodium (Colace) 100 mg BID PRN ORAL Constipation 12/06/19 18:00 01/03/20 22:29 Duloxetine HCl (Cymbalta) 30 mg DAILY ORAL 12/07/19 09:00 01/05/20 08:59 Heparin Sodium (Porcine) (Heparin 5000 units/ml) 5,000 units EVERY 12 HOURS SUBQ 12/06/19 21:00 01/19/20 20:59 Hydromorphone HCl (Dilaudid) 0.4 mg Q6H PRN IVP Severe Pain (Pain Scale 7-10) 12/06/19 16:00 12/13/19 15:59 Ondansetron HCl (Zofran) 4 mg Q8H PRN IVP Nausea & Vomiting 12/06/19 16:00 01/05/20 15:59 Piperacillin Sod/ Tazobactam Sod 3.375 gm/Dextrose 100 ml @ 25 mls/hr EVERY 8 HOURS IVPB 12/06/19 22:00 12/11/19 21:59 Tamsulosin HCl (Flomax) 0.4 mg DAILY ORAL 12/07/19 09:00 01/05/20 08:59 Vancomycin HCl (Vanco rx to dose) 1 ea DAILY PRN MISC Per rx protocol 12/07/19 09:00 01/03/20 21:59 Vancomycin HCl 1 gm/Dextrose 275 ml @ 183.708 mls/hr Q8H IVPB 12/06/19 18:00 12/11/19 17:59 12/06/19 18:03 Babatunde Kyle MD Dec 06, 2019 20:02
[2019-12-06] MEDS ORDERED: NS 275ml ONE (22:42)
[2019-12-06] MEDS ORDERED: Tubing IV Secondary IV ONE (22:42)
[2019-12-07] VITALS (11 sets, daily range): BP systolic 110–136; BP diastolic 65–89
[2019-12-07 06:56] LABS: BASOPHILS % (AUTO) 1.1 % (0.0-2.0); EOSINOPHILS % (AUTO) 3.1 % (0.0-3.0); HEMATOCRIT 36.4 % (42.0-52.0); HEMOGLOBIN 12.7 G/DL (14.2-18.0); LYMPHOCYTES % (AUTO) 26.8 % (20.0-45.0); MEAN CORPUSCULAR VOLUME 86 FL (80-99); MONOCYTES % (AUTO) 8.4 % (1.0-10.0); NEUTROPHILS % (AUTO) 60.7 % (45.0-75.0); PLATELET COUNT 137 K/UL (150-450); RED BLOOD COUNT 4.22 M/UL (4.70-6.10); RED CELL DISTRIBUTION WIDTH 12.6 % (11.6-14.8); WHITE BLOOD COUNT 4.7 K/UL (4.8-10.8)
--- NOTE | 2019-12-07 07:27 | NUR ---
HAND-OFF: Report given to Alaina Schaffer RN.
--- NOTE | 2019-12-07 07:44 | NUR ---
NURSE NOTES: Received patient in bed awake. No SOB or acute distress. IV line intact. Dale catheter intact, draining yellow colored urine. Kept on NPO post midnight. Plan for ureteral stent removal, awaiting orders. HOB elevated. Bed locked in lowest position. Call light within reach. Will continue plan of care.
[2019-12-07 07:55] LABS: ALANINE AMINOTRANSFERASE 16 U/L (12-78); ALBUMIN 2.7 G/DL (3.4-5.0); ALBUMIN/GLOBULIN RATIO 0.8 (1.0-2.7); ALKALINE PHOSPHATASE 59 U/L (46-116); ANION GAP 10 mmol/L (5-15); ASPARTATE AMINO TRANSFERASE 14 U/L (15-37); BILIRUBIN,TOTAL 0.4 MG/DL (0.2-1.0); BLOOD UREA NITROGEN 9 mg/dL (7-18); CALCIUM 8.8 MG/DL (8.5-10.1); CARBON DIOXIDE 26 MMOL/L (21-32); CHLORIDE 113 MMOL/L (98-107); CREATININE 0.9 MG/DL (0.55-1.30); POTASSIUM 3.5 MMOL/L (3.5-5.1); SODIUM 149 MMOL/L (136-145)
[2019-12-07] MEDS: Heparin 5000 units/ml inj SUBQ SCH ×2 (09:00→21:00)
[2019-12-07] MEDS: Tamsulosin 0.4mg cap ORAL SCH ×2 (09:00→21:54)
[2019-12-07] MEDS: DULoxetine 30mg cap ORAL SCH (09:00)
--- NOTE | 2019-12-07 10:46 | NUR ---
NURSE NOTES: Patient requesting stool softener, Dr Victor Hugo bray, said to wait after procedure for evaluation for stool softeners. Patient aware. Consent for procedure secured, to be transported around 2pm today, remained on NPO.
--- NOTE | 2019-12-07 11:57 | NUR ---
*-* INSURANCE *-* ALL CLINICALS HAVE BEEN FAXED TO: [employer] P: [phone] F: [phone]
--- NOTE | 2019-12-07 12:15 | Consultation ---
DATE OF CONSULTATION: 12/07/2019 CONSULTING PHYSICIAN: Matthieu Fam M.D. REASON FOR CONSULTATION: Retained double-J stent. Urinary tract infection. HISTORY OF PRESENT ILLNESS: The patient is a 59-year-old gentleman presented with malaise, fever, and left flank pain to the emergency room, started on IV fluids and antibiotics and admitted for observation and possible stent removal. ALLERGIES: No known allergies. MEDICAL HISTORY: He has history of high blood pressure and BPH. MEDICATIONS: Tamsulosin, metoprolol. REVIEW OF SYMPTOMS: Currently asymptomatic. Minimum left flank pain. No evidence of hematuria and no evidence of nausea and vomiting. PHYSICAL EXAMINATION: VITAL SIGNS: He is currently afebrile. Vital signs stable. NEUROLOGICAL: Intact. LUNGS: Clear to auscultation. CARDIOVASCULAR: Regular rate and rhythm. ABDOMEN: Soft, nontender. No CVA tenderness. LABORATORY AND DIAGNOSTIC DATA: CT urogram showed retained double-J stent with possible calcifications, however, no evidence of large stones in the collecting system of the left kidney. KUB also confirms presence of the stent. His laboratory data, the most recent one, white count is 4.7, hematocrit is 36.4, creatinine is 0.9. ASSESSMENT AND PLAN: The patient has retained double-J stent. The stent could be removed as an inpatient or an outpatient. The patient needs further evaluation, why the stent was placed, whether he has any residual stones in the collecting system or in the ureter . I will discuss this with the patient and we will make a decision in terms of scheduling him for surgery as an inpatient or outpatient procedure. Matthieu Fam M.D. DR: [place] JOB#: [id number] CC:
--- NOTE | 2019-12-07 13:30 | NUR ---
NURSE NOTES: Patient transported down for procedure.
[2019-12-07] MEDS ORDERED: Iothalamate Meglumine 60% 50ML INJ ONE (13:54)
[2019-12-07] MEDS ORDERED: NS Irrig 4000ml IRRIG ONE (14:00)
[2019-12-07] MEDS ORDERED: LR 1000ml ONE (14:00)
[2019-12-07] MEDS ORDERED: fentaNYL 100 mcg/2 mL IV ONE (14:04)
[2019-12-07] MEDS ORDERED: Midazolam 2mg/2ml Inj ONE (14:04)
[2019-12-07] MEDS ORDERED: cefOXitin 1gm Inj ONE (14:08)
[2019-12-07] MEDS ORDERED: Propofol 200mg/20ml IV ONE (14:10)
[2019-12-07] MEDS ORDERED: Lidocaine 1% MPF 10mg/ml 5ml ONE (14:10)
--- NOTE | 2019-12-07 14:26 | Pre-Procedure Note/Attestation ---
Pre-Procedure Note/Attestation Complete Prior to Procedure Planned Procedure: left Procedure Narrative: left ureteroscopy stent removal stent placement RPG Indications for Procedure Pre-Operative Diagnosis: retained stent Attestation I attest that I discussed the nature of the procedure; its benefits; risks and complications; and alternatives (and the risks and benefits of such alternatives ), prior to the procedure, with the patient (or the patient's legal fraud representative). I attest that, if there was a reasonable possibility of needing a blood transfusion, the patient (or the patient's legal fraud representative) was given the [facility] standardized written summary, pursuant to the [place] [employer] Blood Safety Act ([place] Health and Safety Code # 1645, as amended). I attest that I re-evaluated the patient just prior to the surgery and that there has been no change in the patient's H&P, except as documented below: Matthieu Fam MD Dec 07, 2019 14:26
--- NOTE | 2019-12-07 14:31 | Brief Operative Note ---
Immediate Post Operative Note Operative Note Pre-op Diagnosis: retained stent Procedure: left yreteroscopy stent removal rpg lef Post-op Diagnosis: same Post-op Diagnosis: same as pre-op Surgeon: Flaco fam Anesthesia: general Specimen: yes Complications: none Condition: stable Fluids: 500 Estimated Blood Loss: minimal Implant(s) used?: No Matthieu Fam MD Dec 07, 2019 14:31
[2019-12-07] MEDS ORDERED: HYDROcodone/Acetamin 5/325 tab ORAL PRN (15:00)
[2019-12-07] MEDS ORDERED: Tylenol #3 tab (300mg/30mg) ORAL PRN (15:00)
[2019-12-07] MEDS ORDERED: HYDROmorphone 1mg/ml Carpuject SUBQ PRN (15:00)
--- NOTE | 2019-12-07 15:12 | Anethesia Preoperative Eval ---
Anesthesia Pre-op PMH/ROS General Date of Evaluation: Dec 07, 2019 Time of Evaluation: 14:10 Anesthesiologist: Byron ASA Score: ASA 3 Mallampati Score Class I : Soft palate, uvula, fauces, pillars visible Class II: Soft palate, uvula, fauces visible Class III: Soft palate, base of uvula visible Class IV: Only hard plate visible Mallampati Classification: Class III Surgeon: Sarwat Diagnosis: UTI Surgical Procedure: Cysto stent removal Anesthesia History: none Social History: alcohol use Family History: no anesthesia problems Allergies: Coded Allergies: No Known Allergies (Unverified , 06/03/19) Medications: see eMAR Patient NPO?: Yes NPO Date: Dec 07, 2019 NPO Time: 0000 Past Medical History Cardiovascular: Reports: HTN - borderline; Denies: CAD, MO, valve dz, arrhythmia, other Pulmonary: Denies: asthma, COPD, EILEEN, other Gastrointestinal/Genitourinary: Reports: GERD, other - kidney stones; Denies: CRI, ESRD Neurologic/Psychiatric: Reports: dementia; Denies: CVA, depression/anxiety, TIA, other Endocrine: Reports: hypothyroidism; Denies: DM, steroids, other HEENT: Denies: cataract (L), cataract (R), glaucoma, EKWOK (L), EKWOK (R), other Hematology/Immune: Reports: anemia - mild; Denies: DVT, bleeding disorder, other Musculoskeletal/Integumentary: Denies: OA, RA, DJD, DDD, edema, other PMH Narrative: as above PSxH Narrative: cervical spine fusion,peg tube cysto Anesthesia Pre-op Phys. Exam Physician Exam Last Vital Signs Date Time Temp Pulse Resp B/P (MAP) Pulse Ox O2 Delivery O2 Flow Rate FiO2 12/07/19 15:05 56 15 114/80 100 Simple Mask 6 12/07/19 15:00 97.2 Constitutional: NAD Neurologic: CN 2-12 intact Cardiovascular: RRR, no M/R/G Respiratory: CTA Gastrointestinal: S/NT/ND Airway Exam Mallampati Score: Class III MO: limited Neck: stiff ROM: limited Teeth: missing Dentures: no upper, no lower Anesthesia Pre-op A/P Labs Hematology Test 12/07/19 05:40 White Blood Count 4.7 K/UL (4.8-10.8) L Red Blood Count 4.22 M/UL (4.70-6.10) L Hemoglobin 12.7 G/DL (14.2-18.0) L Hematocrit 36.4 % (42.0-52.0) L Mean Corpuscular Volume 86 FL (80-99) Mean Corpuscular Hemoglobin 30.1 PG (27.0-31.0) Mean Corpuscular Hemoglobin Concent 34.9 G/DL (32.0-36.0) Red Cell Distribution Width 12.6 % (11.6-14.8) Platelet Count 137 K/UL (150-450) L Mean Platelet Volume 5.1 FL (6.5-10.1) L Neutrophils (%) (Auto) 60.7 % (45.0-75.0) Lymphocytes (%) (Auto) 26.8 % (20.0-45.0) Monocytes (%) (Auto) 8.4 % (1.0-10.0) Eosinophils (%) (Auto) 3.1 % (0.0-3.0) H Basophils (%) (Auto) 1.1 % (0.0-2.0) Chemistry Test 12/07/19 05:40 Sodium Level 149 MMOL/L (136-145) H Potassium Level 3.5 MMOL/L (3.5-5.1) Chloride Level 113 MMOL/L (98-107) H Carbon Dioxide Level 26 MMOL/L (21-32) Anion Gap 10 mmol/L (5-15) Blood Urea Nitrogen 9 mg/dL (7-18) Creatinine 0.9 MG/DL (0.55-1.30) Estimat Glomerular Filtration Rate > 60 mL/min (>60) Glucose Level 100 MG/DL (74-106) Calcium Level 8.8 MG/DL (8.5-10.1) Total Bilirubin 0.4 MG/DL (0.2-1.0) Aspartate Amino Transf (AST/SGOT) 14 U/L (15-37) L Alanine Aminotransferase (ALT/SGPT) 16 U/L (12-78) Alkaline Phosphatase 59 U/L (46-116) Total Protein 6.3 G/DL (6.4-8.2) L Albumin 2.7 G/DL (3.4-5.0) L Globulin 3.6 g/dL Albumin/Globulin Ratio 0.8 (1.0-2.7) L Risk Assessment & Plan Assessment: ASA 3 Plan: GA with LMA Status Change Before Surgery: No Pre-Antibiotics Drug: Cefoxitin 1gr. Given Within 1 Hr of Incision: Yes Time Given: 14:22 Bret Matthews MD Dec 07, 2019 15:12
--- NOTE | 2019-12-07 15:14 | Immediate Post-Op Evaluation ---
Immediate Post-Op Evalulation Immediate Post-Op Evalulation Procedure: Cysto, retrograde pyelogram, stent removal Date of Evaluation: Dec 07, 2019 Time of Evaluation: 15:13 IV Fluids: 300 Blood Products: none Estimated Blood Loss: none Urinary Output: none Blood Pressure Systolic: 138 Blood Pressure Diastolic: 68 Pulse Rate: 56 Respiratory Rate: 20 O2 Sat by Pulse Oximetry: 99 Temperature (Fahrenheit): 97.4 Pain Score (1-10): 1 Nausea: No Vomiting: No Complications none Patient Status: awake, patent, none Hydration Status: adequate rBet Matthews MD Dec 07, 2019 15:14
--- NOTE | 2019-12-07 15:44 | General Progress Note ---
Assessment/Plan Problem List: (1) Urinary retention ICD Codes: R33.9 - Retention of urine, unspecified SNOMED: 824690537 (2) Sepsis ICD Codes: A41.9 - Sepsis, unspecified organism SNOMED: 18137746 Qualifiers: Qualified Codes: A41.9 - Sepsis, unspecified organism (3) AAA (abdominal aortic aneurysm) ICD Codes: I71.4 - Abdominal aortic aneurysm, without rupture SNOMED: 300269277 Qualifiers: Qualified Codes: I71.4 - Abdominal aortic aneurysm, without rupture (4) UTI (urinary tract infection) ICD Codes: N39.0 - Urinary tract infection, site not specified SNOMED: 67457336 Qualifiers: Qualified Codes: N39.0 - Urinary tract infection, site not specified (5) Abdominal pain ICD Codes: R10.9 - Unspecified abdominal pain SNOMED: 09612903 Qualifiers: Qualified Codes: R10.32 - Left lower quadrant pain Status: stable, not improved Assessment/Plan: Mr. Darby is a 59 year old M with AAA, HTN, depression, BPH, left ureteral stent, presenting with sepsis, UTI and left hydronephrosis #Sepsis #Acute UTI #Presence of left ureteral stent #Left hydronephrosis #BPH -plan for stent removal/replacement by urology today. -CT showing left sided hydro, no stone seen. -ID following. appreciate recs. -Continue abx, f/u cultures. -Dale in place -Pain control. -mIVF -Continue daily home flomax. #AAA 5.2 cm infrarenal. previously known. -surgery consulted. appreciate recs. -recommends outpatient f/u. nothing to do during this admission. #Depression -continue home duloxetine. #HTN -Holding home Losartan and MTP in setting of sepsis above. 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 -PT Time spent: 37 mins, 50% on counseling and coordination of care. Subjective Date patient seen: Dec 07, 2019 Constitutional: Denies: no symptoms, chills, diaphoresis, fever, malaise, weakness, other HEENT: Denies: no symptoms, eye pain, blurred vision, tearing, double vision, ear pain, ear discharge, nose pain, nose congestion, throat pain, throat swelling, mouth pain, mouth swelling, other Cardiovascular: Denies: no symptoms, chest pain, edema, irregular heart rate, lightheadedness, palpitations, syncope, other Respiratory: Denies: no symptoms, cough, orthopnea, shortness of breath, SOB with excertion, SOB at rest, sputum, stridor, wheezing, other Gastrointestinal/Abdominal: Denies: no symptoms, abdomen distended, abdominal pain, black stools, tarry stools, blood in stool, constipated, diarrhea, difficulty swallowing, nausea, poor appetite, poor fluid intake, rectal bleeding , vomiting, other Genitourinary: Denies: no symptoms, burning, discharge, frequency, flank pain, hematuria, incontinence, pain, urgency, other Neurologic/Psychiatric: Denies: no symptoms, anxiety, depressed, emotional problems, headache, numbness, paresthesia, pre-existing deficit, seizure, tingling, tremors, weakness, other Endocrine: Denies: no symptoms, excessive sweating, flushing, intolerance to cold, intolerance to heat, increased hunger, increased thirst, increased urine, unexplained weight gain, unexplained weight loss, other Hematologic/Lymphatic: Denies: no symptoms, anemia, easy bleeding, easy bruising, other Allergies: Coded Allergies: No Known Allergies (Unverified , 06/03/19) Subjective at bedside. pain improved. no f/c. no overnight events. plan for ureteral stent removal by urology today. Objective Last 24 Hour Vital Signs Date Time Temp Pulse Resp B/P (MAP) Pulse Ox O2 Delivery O2 Flow Rate FiO2 12/07/19 15:30 58 23 135/85 100 Nasal Cannula 3 12/07/19 15:20 54 14 127/81 100 Simple Mask 6 12/07/19 15:14 56 20 99 12/07/19 15:10 55 15 125/81 100 Simple Mask 6 12/07/19 15:05 56 15 114/80 100 Simple Mask 6 12/07/19 15:00 97.2 56 14 129/82 100 Simple Mask 6 12/07/19 12:00 98.3 69 19 121/89 (100) 95 12/07/19 09:00 Room Air 12/07/19 08:00 98.6 61 19 125/80 (95) 95 12/07/19 04:00 97.4 86 19 118/73 (88) 98 12/07/19 00:19 97.6 90 18 110/65 (80) 97 12/07/19 00:05 98.6 12/06/19 20:28 Room Air 12/06/19 19:51 98.6 91 18 112/68 (83) 98 12/06/19 16:00 97.0 82 19 139/88 (105) 99 Intake and Output 12/06/19 12/07/19 19:00 07:00 Intake Total 775 ml 150 ml Output Total 900 ml 1000 ml Balance -125 ml -850 ml Intake Oral 400 ml IV Total 375 ml 150 ml Output Urine Total 900 ml 1000 ml # Voids 2 Laboratory Tests 12/06/19 16:20: Vancomycin Level Trough 13.7H 12/07/19 05:40: White Blood Count 4.7L, Red Blood Count 4.22L, Hemoglobin 12.7L, Hematocrit 36.4L, Mean Corpuscular Volume 86, Mean Corpuscular Hemoglobin 30.1, Mean Corpuscular Hemoglobin Concent 34.9, Red Cell Distribution Width 12.6, Platelet Count 137L, Mean Platelet Volume 5.1L, Neutrophils (%) (Auto) 60.7, Lymphocytes (%) (Auto) 26.8, Monocytes (%) (Auto) 8.4, Eosinophils (%) (Auto) 3.1H, Basophils (%) (Auto) 1.1, Sodium Level 149H, Potassium Level 3.5, Chloride Level 113H, Carbon Dioxide Level 26, Anion Gap 10, Blood Urea Nitrogen 9, Creatinine 0.9, Estimat Glomerular Filtration Rate > 60, Glucose Level 100, Calcium Level 8.8, Total Bilirubin 0.4, Aspartate Amino Transf (AST/SGOT) 14L, Alanine Aminotransferase (ALT/SGPT) 16, Alkaline Phosphatase 59, Total Protein 6.3L, Albumin 2.7L, Globulin 3.6, Albumin/Globulin Ratio 0.8L Height (Feet): 5 Height (Inches): 8.00 Weight (Pounds): 160 General Appearance: no apparent distress, alert Neck: supple Cardiovascular: normal rate, regular rhythm Respiratory/Chest: lungs clear, normal breath sounds Abdomen: non tender, soft Neurologic: alert, oriented x 3 Angelica Gay M.D. Dec 07, 2019 15:44
--- NOTE | 2019-12-07 15:49 | Surgery Progress Note ---
Surgery Progress Note Subjective Additional Comments OR today with urology Objective Last 24 Hour Vital Signs Date Time Temp Pulse Resp B/P (MAP) Pulse Ox O2 Delivery O2 Flow Rate FiO2 12/07/19 15:30 58 23 135/85 100 Nasal Cannula 3 12/07/19 15:20 54 14 127/81 100 Simple Mask 6 12/07/19 15:14 56 20 99 12/07/19 15:10 55 15 125/81 100 Simple Mask 6 12/07/19 15:05 56 15 114/80 100 Simple Mask 6 12/07/19 15:00 97.2 56 14 129/82 100 Simple Mask 6 12/07/19 12:00 98.3 69 19 121/89 (100) 95 12/07/19 09:00 Room Air 12/07/19 08:00 98.6 61 19 125/80 (95) 95 12/07/19 04:00 97.4 86 19 118/73 (88) 98 12/07/19 00:19 97.6 90 18 110/65 (80) 97 12/07/19 00:05 98.6 12/06/19 20:28 Room Air 12/06/19 19:51 98.6 91 18 112/68 (83) 98 12/06/19 16:00 97.0 82 19 139/88 (105) 99 I&O Intake and Output 12/06/19 12/07/19 19:00 07:00 Intake Total 775 ml 150 ml Output Total 900 ml 1000 ml Balance -125 ml -850 ml Intake Oral 400 ml IV Total 375 ml 150 ml Output Urine Total 900 ml 1000 ml # Voids 2 Cardiovascular: RSR Respiratory: clear Abdomen: soft, non-tender, present bowel sounds Extremities: no tenderness, no cyanosis Laboratory Tests Test 12/06/19 16:20 12/07/19 05:40 Vancomycin Level Trough 13.7 ug/mL (5.0-12.0) H White Blood Count 4.7 K/UL (4.8-10.8) L Red Blood Count 4.22 M/UL (4.70-6.10) L Hemoglobin 12.7 G/DL (14.2-18.0) L Hematocrit 36.4 % (42.0-52.0) L Mean Corpuscular Volume 86 FL (80-99) Mean Corpuscular Hemoglobin 30.1 PG (27.0-31.0) Mean Corpuscular Hemoglobin Concent 34.9 G/DL (32.0-36.0) Red Cell Distribution Width 12.6 % (11.6-14.8) Platelet Count 137 K/UL (150-450) L Mean Platelet Volume 5.1 FL (6.5-10.1) L Neutrophils (%) (Auto) 60.7 % (45.0-75.0) Lymphocytes (%) (Auto) 26.8 % (20.0-45.0) Monocytes (%) (Auto) 8.4 % (1.0-10.0) Eosinophils (%) (Auto) 3.1 % (0.0-3.0) H Basophils (%) (Auto) 1.1 % (0.0-2.0) Sodium Level 149 MMOL/L (136-145) H Potassium Level 3.5 MMOL/L (3.5-5.1) Chloride Level 113 MMOL/L (98-107) H Carbon Dioxide Level 26 MMOL/L (21-32) Anion Gap 10 mmol/L (5-15) Blood Urea Nitrogen 9 mg/dL (7-18) Creatinine 0.9 MG/DL (0.55-1.30) Estimat Glomerular Filtration Rate > 60 mL/min (>60) Glucose Level 100 MG/DL (74-106) Calcium Level 8.8 MG/DL (8.5-10.1) Total Bilirubin 0.4 MG/DL (0.2-1.0) Aspartate Amino Transf (AST/SGOT) 14 U/L (15-37) L Alanine Aminotransferase (ALT/SGPT) 16 U/L (12-78) Alkaline Phosphatase 59 U/L (46-116) Total Protein 6.3 G/DL (6.4-8.2) L Albumin 2.7 G/DL (3.4-5.0) L Globulin 3.6 g/dL Albumin/Globulin Ratio 0.8 (1.0-2.7) L Plan Problems: (1) AAA (abdominal aortic aneurysm) Assessment & Plan: ABDOMEN: Liver: Unremarkable. No mass. Gallbladder and bile ducts: Unremarkable. No calcified stones. No ductal dilation. Pancreas: Unremarkable. No mass. No ductal dilation. Spleen: Unremarkable. No splenomegaly. Adrenals: Similar nonspecific bilateral adrenal nodules measuring 1.8 cm on the left and 1.5 cm on the right. Kidneys and ureters: Moderate to severe left hydronephrosis. Left ureteral stent in place. No obstructing stone identified. Right renal cyst. Nonspecific hypodense lesions in the left kidney, one of which with mild associated calcifications. Stomach and bowel: Unremarkable. No obstruction. No mucosal thickening. PELVIS: Appendix: Normal appendix. Bladder: Distended bladder. Mild nonspecific bladder wall thickening along the right aspect of the bladder. Reproductive: Prominent calcifications in the prostate which is enlarged. ABDOMEN and PELVIS: Intraperitoneal space: Unremarkable. No free air. No significant fluid collection. Bones/joints: Degenerative changes of the spine. No acute fracture. No dislocation. Soft tissues: Small fat-containing umbilical hernia. Vasculature: Infrarenal abdominal aortic aneurysm, measuring approximately 5.1 cm in diameter. No aortic dissection. Atherosclerotic changes of the vasculature. Lymph nodes: Unremarkable. No enlarged lymph nodes. IMPRESSION: 1. Similar nonspecific bilateral adrenal nodules measuring 1.8 cm on the left and 1.5 cm on the right. 2. Infrarenal abdominal aortic aneurysm, measuring approximately 5.1 cm in diameter. No aortic dissection. 3. Moderate to severe left hydronephrosis. Left ureteral stent in place. No obstructing stone identified. 4. Distended bladder. Mild nonspecific bladder wall thickening along the right aspect of the bladder. Had a long discussion with patient regards to this. He states that last year when he came here was transferred to [facility] for evaluation of his AAA at which time he was told to follow-up with his primary care physician. Patient followed up with his primary care physician and was seen at [facility] as an outpatient for evaluation by CT surgery at which time after discussing risk-benefit alternatives intervention with patient decision was made to hold on further intervention and monitor. I explained to patient the necessity of monitoring closely to ensure no growth and stable. He expressed understanding. Currently no acute issues from AAA and stable. (2) Abdominal pain Assessment & Plan: This is a 51-year-old male with abdominal pain left-sided. Febrile, leukocytosis, lactic acidosis. Dehydrated initially resuscitated. Patient identified to have left-sided hydronephrosis with historic stent placement. This is likely the etiology of the patient's pain discomfort and sepsis. Infectious process. Patient identified to have a 5.1 cm infrarenal uncomplicated AAA. This is unlikely a source or etiology of patient's current discomfort and patient has had it known for some time now. I do long discussion with the patient given the size location and CT appearance of the AAA. I recommend strongly that the patient follow-up with his primary care physician for evaluation by vascular/cardiothoracic surgery as an outpatient for elective consideration of repair. No acute surgical intervention for nonruptured non-dissected uncomplicated 5.1 cm infrarenal AAA as other etiology of pain described above. Continue antibiotics as per infectious disease. Trend labs. Resuscitation. We will follow the recommendations. Okay for diet. Pending urology evaluation for possible stent removal. Fever is improving Leukocytosis resolved Clarence Conway Dec 07, 2019 15:49
--- NOTE | 2019-12-07 16:00 | NUR ---
NURSE NOTES: Patient back from procedure. Freely voiding.
--- NOTE | 2019-12-07 16:11 | Diagnostic Imaging Report ---
INDICATION: Pain, intraoperative TECHNIQUE: Intraoperative imaging Fluoroscopy time: 33.7 seconds Total dose: [id number] mGym2 Total number of images: 6 COMPARISON: None FINDINGS: Intraoperative images document opacification of the left ureter and left renal collecting system. IMPRESSION: Intraoperative imaging, as described
[2019-12-07] MEDS: D5 1/2NS 1,000 ML IV SCH (16:15)
[2019-12-07] MEDS: Piperacillin/Tazobactam 3.375 GM in D5W 110 ML IVPB SCH (16:15)
--- NOTE | 2019-12-07 16:42 | NUR ---
CASE MANAGEMENT:INITIAL REVIEW 12/05/2019 59 YR OLD MALE BIBA FROM HOME CC;ABDOMINAL PAIN SI;SEPSIS. ABD AORTIC ANEURYSM. UTI. 102.6 140 20 148/92 97% ON RA BUN 21 LAC ACID 2.30 VANCO TROUGH 13.7 UA+ PROTEIN, BLOOD, NITRITE, LEUKOCYTE, RBC, WBC, BACTERIA CXR = NEGATIVE ABD/PELVIS CT = Infrarenal abdominal aortic aneurysm, measuring approximately 5.1 cm in diameter. No aortic dissection. IS;ZOFRAN IV IVF NS ROCEPHIN IV LEVAQUIN IV MORPHINE IV VANCOMYCIN IV GENTAMICIN IV ADMITTED TO MED SURG MED SURG STATUS DCP;FROM HOME CASE MANAGEMENT:REVIEW 12/07/2019 SI;CYSTOSCOPY, URETOROSCOPY, STENT REMOVAL AND PLACEMENT TODAY 97.8 54 23 136/81 66% 6L SIMPLE MASK WBC 4.7 NA 149 CL 113 IS;ZOSYN IV Q8 HRS IVF D5W @ 100 ML/HR DILAUDID SUBQ Q1 HRS PRN NORCO PO Q4 HRS PRN MED SURG STATUS DCP; FROM HOME
--- NOTE | 2019-12-07 18:00 | NUR ---
NURSE NOTES: Patient with blood in urine, will continue observation.
--- NOTE | 2019-12-07 19:57 | NUR ---
NURSE NOTES: Received patient in bed, awake, alert, oriented x4 , able to verbalize his needs, IV sites are clean dry and intact, patient is on room air, call light is within reach, bed is lowered, locked and alarm is on, will continue to monitor for comfort and safety.
--- NOTE | 2019-12-07 20:00 | NUR ---
HAND-OFF: Report given to morro.
--- NOTE | 2019-12-07 21:23 | NUR ---
NURSE NOTES: Per ok to hold heparin SUBQ.
[2019-12-08] VITALS: BP 126/82
[2019-12-08] MEDS: D5 1/2NS 1,000 ML IV SCH (00:11)
[2019-12-08] MEDS: Piperacillin/Tazobactam 3.375 GM in D5W 110 ML IVPB SCH ×2 (00:11→07:56)
[2019-12-08 04:00] VITALS: BP 129/80
--- NOTE | 2019-12-08 06:42 | 48 Hour Post Anesthesia Eval ---
Post Anesthesia Evaluation Procedure: Cysto, retrograde pyelogram, stent removal Date of Evaluation: Dec 08, 2019 Time of Evaluation: 06:41 Blood Pressure Systolic: 129 0: 80 Pulse Rate: 66 Respiratory Rate: 16 Temperature (Fahrenheit): 97.7 O2 Sat by Pulse Oximetry: 98 Airway: patent Nausea: No Vomiting: No Pain Intensity: 2 Hydration Status: adequate Cardiopulmonary Status: Stable Mental Status/LOC: patient returned to baseline Follow-up Care/Observations: 0 Post-Anesthesia Complications: 0 Follow-up care needed: N/A Dougie Walker MD Dec 08, 2019 06:42
--- NOTE | 2019-12-08 07:02 | NUR ---
NURSE NOTES: Received patient in bed awake. No SOB or acute distress. IV line intact and patent. Reports blood in urine. HOB elevated. Bed locked in lowest position. Call light within reach. Will continue to monitor.
--- NOTE | 2019-12-08 07:17 | NUR ---
HAND-OFF: Report given to Alaina SLATER.
[2019-12-08 08:00] VITALS: BP 127/60
[2019-12-08] MEDS: DULoxetine 30mg cap ORAL SCH (08:03)
[2019-12-08] MEDS: Tamsulosin 0.4mg cap ORAL SCH (08:18)
--- NOTE | 2019-12-08 10:19 | NUR ---
NURSE NOTES: Patient needs clearance to resume PT as per Johana PT. Dr Moreno informed, awaiting orders.
--- NOTE | 2019-12-08 10:35 | NUR ---
PT NOTE Received clearance from Dr. Dior to resume PT. Approached patient, patient declined to participate with PT as he is being discharged home.
--- NOTE | 2019-12-08 10:49 | Discharge Summary ---
Discharge Summary Hospital Course Date of Admission Dec 04, 2019 at 19:30 Date of Discharge 12/08/19 Admitting Diagnosis SEPSIS HPI Christianne Darby is a 59 year old male who was admitted on Dec 04, 2019 at 19:30 for Sepsis Consultations Urology, ID Procedures Cystoscopy Hospital Course Mr. Darby is a 59 year old M with AAA, HTN, depression, BPH, left ureteral stent, presenting with sepsis, UTI and left hydronephrosis. Treated with broad spectrum antibiotics and seen by ID and Urology. Underwent Cysto, retrograde pyelogram, stent removal. Urine cultures grew pseudomonas. Fever and leukocytosis resolved. Per ID will continue with Cipro for 1 more week. PCP follow up in 1 week. Will need clsoe outpatient follow up for AAA as per surgery. #Sepsis #Acute UTI #Presence of left ureteral stent #Left hydronephrosis #BPH #AAA #Depression #HTN #Deconditioning #Hx of trauma Discharge Medications Continued Medications: Docusate Sodium* (Docusate Sodium*) 100 Mg Capsule 100 MG ORAL TWICE A DAY PRN for Constipation, CAP (This prescription has been renewed) Duloxetine Hcl* (Cymbalta*) 30 Mg Capsule.dr 30 MG ORAL DAILY for depression, CAP (This prescription has been renewed) Losartan Potassium* (Losartan Potassium*) 25 Mg Tablet 25 MG ORAL DAILY for HTN, TAB (This prescription has been renewed) Metoprolol Tartrate* (Metoprolol Tartrate*) 25 Mg Tablet 25 MG ORAL EVERY 12 HOURS for HTN, TAB (This prescription has been renewed) Tamsulosin HCl (Flomax) 0.4 Mg Cap.er.24h 0.4 MG ORAL DAILY for BPH, CAP (This prescription has been renewed) Discharge Condition Upon Discharge: improving Discharge Vital Signs Last Vital Signs Date Time Temp Pulse Resp B/P (MAP) Pulse Ox O2 Delivery O2 Flow Rate FiO2 12/08/19 08:00 98.0 67 16 127/60 (82) 99 12/07/19 21:00 Room Air 12/07/19 15:45 3 Discharge Disposition Patient was discharged to home Discharge Diagnoses: (1) Sepsis (2) UTI (urinary tract infection) (3) AAA (abdominal aortic aneurysm) Adolfo Caceres MD Dec 08, 2019 10:49
[2019-12-08 12:00] VITALS: BP 119/79
--- NOTE | 2019-12-08 13:04 | Surgery Progress Note ---
Surgery Progress Note Subjective Additional Comments doing better pain improved d/c [plan for today outpatient follow up with urology and [facility] [place] for aaa Objective Last 24 Hour Vital Signs Date Time Temp Pulse Resp B/P (MAP) Pulse Ox O2 Delivery O2 Flow Rate FiO2 12/08/19 09:00 Room Air 12/08/19 08:00 98.0 67 16 127/60 (82) 99 12/08/19 06:42 66 16 98 12/08/19 04:00 97.7 66 18 129/80 (96) 98 12/08/19 00:00 97.1 68 18 126/82 (97) 96 12/07/19 22:27 97.3 12/07/19 21:00 Room Air 12/07/19 20:00 97.3 67 18 124/84 (97) 96 12/07/19 15:45 97.8 55 18 136/81 100 Nasal Cannula 3 12/07/19 15:30 58 23 135/85 100 Nasal Cannula 3 12/07/19 15:20 54 14 127/81 100 Simple Mask 6 12/07/19 15:14 56 20 99 12/07/19 15:10 55 15 125/81 100 Simple Mask 6 12/07/19 15:05 56 15 114/80 100 Simple Mask 6 12/07/19 15:00 97.2 56 14 129/82 100 Simple Mask 6 I&O Intake and Output 12/07/19 12/08/19 19:00 07:00 Intake Total 750 ml Output Total 100 ml Balance 650 ml Intake Oral 500 ml IV Total 250 ml Output Urine Total 100 ml Cardiovascular: RSR Respiratory: clear Abdomen: soft, flat, non-tender, present bowel sounds Extremities: no edema, no tenderness, no cyanosis Plan Problems: (1) AAA (abdominal aortic aneurysm) Assessment & Plan: ABDOMEN: Liver: Unremarkable. No mass. Gallbladder and bile ducts: Unremarkable. No calcified stones. No ductal dilation. Pancreas: Unremarkable. No mass. No ductal dilation. Spleen: Unremarkable. No splenomegaly. Adrenals: Similar nonspecific bilateral adrenal nodules measuring 1.8 cm on the left and 1.5 cm on the right. Kidneys and ureters: Moderate to severe left hydronephrosis. Left ureteral stent in place. No obstructing stone identified. Right renal cyst. Nonspecific hypodense lesions in the left kidney, one of which with mild associated calcifications. Stomach and bowel: Unremarkable. No obstruction. No mucosal thickening. PELVIS: Appendix: Normal appendix. Bladder: Distended bladder. Mild nonspecific bladder wall thickening along the right aspect of the bladder. Reproductive: Prominent calcifications in the prostate which is enlarged. ABDOMEN and PELVIS: Intraperitoneal space: Unremarkable. No free air. No significant fluid collection. Bones/joints: Degenerative changes of the spine. No acute fracture. No dislocation. Soft tissues: Small fat-containing umbilical hernia. Vasculature: Infrarenal abdominal aortic aneurysm, measuring approximately 5.1 cm in diameter. No aortic dissection. Atherosclerotic changes of the vasculature. Lymph nodes: Unremarkable. No enlarged lymph nodes. IMPRESSION: 1. Similar nonspecific bilateral adrenal nodules measuring 1.8 cm on the left and 1.5 cm on the right. 2. Infrarenal abdominal aortic aneurysm, measuring approximately 5.1 cm in diameter. No aortic dissection. 3. Moderate to severe left hydronephrosis. Left ureteral stent in place. No obstructing stone identified. 4. Distended bladder. Mild nonspecific bladder wall thickening along the right aspect of the bladder. Had a long discussion with patient regards to this. He states that last year when he came here was transferred to [facility] for evaluation of his AAA at which time he was told to follow-up with his primary care physician. Patient followed up with his primary care physician and was seen at [facility] as an outpatient for evaluation by CT surgery at which time after discussing risk-benefit alternatives intervention with patient decision was made to hold on further intervention and monitor. I explained to patient the necessity of monitoring closely to ensure no growth and stable. He expressed understanding. Currently no acute issues from AAA and stable. (2) Abdominal pain Assessment & Plan: This is a 51-year-old male with abdominal pain left-sided. Febrile, leukocytosis, lactic acidosis. Dehydrated initially resuscitated. Patient identified to have left-sided hydronephrosis with historic stent placement. This is likely the etiology of the patient's pain discomfort and sepsis. Infectious process. Patient identified to have a 5.1 cm infrarenal uncomplicated AAA. This is unlikely a source or etiology of patient's current discomfort and patient has had it known for some time now. I do long discussion with the patient given the size location and CT appearance of the AAA. I recommend strongly that the patient follow-up with his primary care physician for evaluation by vascular/cardiothoracic surgery as an outpatient for elective consideration of repair. No acute surgical intervention for nonruptured non-dissected uncomplicated 5.1 cm infrarenal AAA as other etiology of pain described above. Continue antibiotics as per infectious disease. Trend labs. Resuscitation. We will follow the recommendations. Okay for diet. Pending urology evaluation for possible stent removal. Fever is improving Leukocytosis resolved Clarence Conway Dec 08, 2019 13:04
[2019-12-08] MEDS ORDERED: NS 275ml ONE (14:57)
--- NOTE | 2019-12-08 15:00 | NUR ---
NURSE NOTES: Patient for discharge. Discharge instructions given, medications given. ID band removed. IV lines removed. Belongings accounted for. For ff up with Dr Fam in 2 weeks, patient aware. Discharged in stable condition and wheeled down to [facility] accompanied by nurse.
--- NOTE | 2019-12-08 15:36 | NUR ---
*-* INSURANCE *-* ALL CLINICALS HAVE BEEN FAXED TO: KATE [employer]LL[employer] P: [phone] F: [phone]
--- NOTE | 2019-12-08 21:45 | Operative Note - Dictated ---
DATE OF OPERATION: 12/07/2019 PREOPERATIVE DIAGNOSES: 1. Retained left double-J stent. 2. Urinary tract infection. 3. Hydronephrosis. POSTOPERATIVE DIAGNOSES: 1. Retained left double-J stent. 2. Urinary tract infection. 3. Hydronephrosis. OPERATION: Cystoscopy, removal of the old double-J stent, retrograde pyelogram, semi-rigid ureteroscopy. SURGEON: Matthieu Fam M.D. ANESTHESIA: General. FINDINGS: Retained double-J stent. DESCRIPTION OF PROCEDURE: The patient was admitted to the hospital with retained stent that has been placed at [facility] in July. He was fine until recently when he developed high fever and abdominal pain the last month. He was admitted, CT urogram was performed showing no evidence of stones. kidney retained double-J stent. All potential complications were explained to the patient. He signed a consent, brought to the operating room, placed in the lithotomy position, and prepped and draped in standard fashion. Under general anesthesia, cystoscope was introduced. Stent was grasped with alligator graspers and removed. Retrograde pyelogram and semi-rigid ureteroscopy confirmed no evidence of retained stones in the ureter and the ureter was empty and Lasix was given as well as antibiotics. Sponge count and instrument count was correct. The patient was transferred to recovery room in stable condition. No evidence of complications. Matthieu Fam M.D. DR: [place] JOB#: [id number] CC:
--- NOTE | 2019-12-09 11:11 | NUR ---
*-* INSURANCE *-* UNABLE TO SEND DISCHARGE SUMMARY NOT IN SYSTEM YET. [facility] P: [phone] F: [phone]
--- NOTE | 2019-12-10 11:11 | NUR ---
*-* INSURANCE *-* UNABLE TO SEND DISCHARGE SUMMARY NOT IN SYSTEM YET. [facility] P: [phone] F: [phone]
== END 2019-12-08 14:58 | disposition home or self-care (01) | DRG 720 ==
LOC: EDBD 15:16 → EMR 15:29 → EDBEDREQSVC 18:18 → EDBEDREQ 18:18 → 2W 19:30 → EDBEDREQ 21:13 → 4E 12-06 15:19
PROC: BT1FZZZ Fluoroscopy of Left Kidney, Ureter and Bladder (ICD-10-PCS; 2019-12-07)
PROC: 0TP98DZ Removal of Intraluminal Device from Ureter, Via Natural or Artificial Opening Endoscopic (ICD-10-PCS; principal; 2019-12-07 14:30)
DX: A41.9 Sepsis, unspecified organism (principal); N39.0 Urinary tract infection, site not specified; I71.4 Abdominal aortic aneurysm, without rupture; I10 Essential (primary) hypertension; N40.1 Benign prostatic hyperplasia with lower urinary tract symptoms; R33.8 Other retention of urine; F32.9 Major depressive disorder, single episode, unspecified; N13.30 Unspecified hydronephrosis
CPT/HCPCS: 36415; 71045; 74018; 74177; 74420; 76000; 80053; 80170; 80202; 81003; 82150; 83605; 83690; 83735; 85025; 85610; 85651; 85730; 86140; 86850; 86900; 86901; 87040; 87086; 87181; 93005; 93970; 94003; 94150; 96361; 96365; 96367; 96375; 99291; 99292; J2250; J2405; J7030